=== PATIENT | male | born 1960 | race Caucasian/White ===

== ENCOUNTER 2019-01-27 16:28 | Emergency (ER) | payer OTHER ==
[2019-01-27 16:38] VITALS: RESP 18
[2019-01-27] MEDS ORDERED: IBUPROFEN 800 MG TAB PO STA (17:06)
[2019-01-27] MEDS ORDERED: Acetaminophen-Codeine 300-30mg TAB PO STA (17:06)
[2019-01-27] MEDS ORDERED: PROCHLORPERAZINE 10 MG TAB PO STA (17:06)
[2019-01-27] MEDS ORDERED: ACETAMINOPHEN TAB 325 MG TAB PO STA (17:06)
--- NOTE | 2019-01-27 17:07 | ED ---
Headache HPI - General Chief Complaint: Headache Stated Complaint: head congestion Time Seen by Provider: 01/27/19 16:45 Source: RN notes reviewed, old records reviewed Mode of arrival: ambulatory Limitations: no limitations - History of Present Illness Initial Comments: This is a 58-year-old male the ER for evaluation today. Patient believes he has recurrent sinus infections and sinus headache. Patient denies any recent trauma, headache is frontal right frontal sinus behind right eye. History of exact same, he has had sinus surgery in the past. No recent fevers. No nausea vomiting. No neurological complaint. Patient was recently treated 5 day course of antibiotics with no help. Patient's headache is been throbbing and continuing worsening until today prompting to force patient to come to the ER MD Complaint: headache -: days(s) Onset Description: gradual Location: right, frontal, temporal, retro-orbital Severity: moderate Severity scale (1-10): 5 Quality: throbbing Consistency: constant, intermittent Improves With: nothing Worsens With: none Treatments Prior to Arrival: none - Related Data Home Medications Medication Instructions Recorded Confirmed Fowpulo-Yezi-Oprs [id number] 1 tab PO Q4HR PRN 01/27/19 01/27/19 [Excedrin] Previous Rx's Medication Instructions Recorded Amoxic-Pot Clav 875-125Mg 1 tab PO Q12HR #20 tablet 01/27/19 [Augmentin 875-125] Cetirizine HCl/Pseudoephedrine 1 each PO BID #20 tab.er.12h 01/27/19 [Zyrtec-D Tablet] Naproxen [EC-Naproxen] 500 mg PO BID #30 tablet. 01/27/19 Allergies Allergy/AdvReac Type Severity Reaction Status Date / Time No Known Allergies Allergy Verified 01/27/19 17:57 Review of Systems ROS Statement: Those systems with pertinent positive or pertinent negative responses have been documented in the HPI. ROS Other: All systems not noted in ROS Statement are negative. Past Medical History Past Medical History: No Reported History History of Any Multi-Drug Resistant Organisms: None Reported Past Surgical History: Orthopedic Surgery Additional Past Surgical History / Comment(s): sinus surgery Past Psychological History: No Psychological Hx Reported Smoking Status: Current every day smoker Past Alcohol Use History: Occasional Past Drug Use History: None Reported General Exam Limitations: no limitations General appearance: alert, in no apparent distress Head exam: Present: atraumatic, normocephalic, normal inspection Eye exam: Present: normal appearance, PERRL, EOMI. Absent: scleral icterus, conjunctival injection, periorbital swelling ENT exam: Present: normal exam, mucous membranes moist Neck exam: Present: normal inspection. Absent: tenderness, meningismus, lymphadenopathy Respiratory exam: Present: normal lung sounds bilaterally. Absent: respiratory distress, wheezes, rales, rhonchi, stridor Cardiovascular Exam: Present: regular rate, normal rhythm, normal heart sounds. Absent: systolic murmur, diastolic murmur, rubs, gallop, clicks GI/Abdominal exam: Present: soft, normal bowel sounds. Absent: distended, tenderness, guarding, rebound, rigid Extremities exam: Present: normal inspection, full ROM, normal capillary refill. Absent: tenderness, pedal edema, joint swelling, calf tenderness Back exam: Present: normal inspection Neurological exam: Present: alert, oriented X3, CN II-XII intact Psychiatric exam: Present: normal affect, normal mood Skin exam: Present: warm, dry, intact, normal color. Absent: rash Course Vital Signs 01/27/19 16:34 Temperature 97.7 F Pulse Rate 96 Respiratory 18 Rate Blood Pressure 155/95 O2 Sat by Pulse 96 Oximetry Medical Decision Making - Medical Decision Making 58 male the ER for evaluation of recurrent sinus headache. Sinusitis. Patient will be placed on recurrent antibiotics and headache control - Radiology Data Radiology results: report reviewed (CT brain and facial bones negative for acute disease), image reviewed Disposition Clinical Impression: Headache, Sinusitis Disposition: HOME SELF-CARE Condition: Good Instructions (If sedation given, give patient instructions): Acute Headache (ED), Sinusitis (ED) Prescriptions: Amoxic-Pot Clav 875-125Mg [Augmentin 875-125] 1 tab PO Q12HR #20 tablet Naproxen [EC-Naproxen] 500 mg PO BID #30 tablet. Cetirizine HCl/Pseudoephedrine [Zyrtec-D Tablet] 1 each PO BID #20 tab.er.12h Is patient prescribed a controlled substance at d/c from ED?: No Referrals: None,Stated [Primary Care Provider] - 1-2 days
--- NOTE | 2019-01-27 17:35 | CT ---
EXAMINATION TYPE: CT brain wo con DATE OF EXAM: 01/27/2019 COMPARISON: None HISTORY: Right sided headache and nasal congestion. CT DLP: combined 1405.6 mGycm Automated exposure control for dose reduction was used. FINDINGS: There is some cerebral cortical atrophy. There is no mass effect nor midline shift. There is no sign of intracranial hemorrhage. Calvarium is intact. There is mucosal thickening in the left maxillary si nus. There is a lateral maxillary sinus surgery noted. IMPRESSION: MILD ATROPHY. NO ACUTE INTRACRANIAL ABNORMALITY. LEFT MAXILLARY SINUSITIS.
--- NOTE | 2019-01-27 17:38 | CT ---
EXAMINATION TYPE: CT facial bones wo con DATE OF EXAM: 01/27/2019 COMPARISON: None HISTORY: Right sided headache and nasal congestion. CT DLP: 1405.6 mGycm Automated exposure control for dose reduction was used. TECHNIQUE: CT scan of the sinuses is performed without contrast, axial images are obtained, coronal r eformatted images are also reviewed. FINDINGS: There is bilateral osteotomy of the medial wall of the maxillary sinuses. There is moderate mucosal thickening in the left maxillary sinus. There is minimal mucosal thickening right maxillary sinus. I see no focal bone destruction. There is mild thickening of the lateral wall left maxillary s inus. Mandibular ring is intact. Nasal bone is intact. Zygomatic arches appear normal. Temporal bones show normal aeration. Sphenoid sinus appears normal. There is no evidence of orbital mass. IMPRESSION: Bilateral maxillary sinus surgery. There is evidence of chronic maxillary sinusitis. No f racture.
[2019-01-27] MEDS ORDERED: DEXAMETHASONE 4 MG TAB PO STA (18:05)
[2019-01-27] MEDS ORDERED: ACET/COD 300 MG/30 MG STARTER PACK 6 TAB BTL PO STA (18:15)
[2019-01-27] MEDS ORDERED: HYDROmorphone 1 MG/ML 1 ML SYRINGE IM STA (18:15)
[2019-01-27 18:23] VITALS: BP 141/98; PULSE 81; TEMP 98.1
== END 2019-01-27 18:21 | disposition home or self-care (01) ==
LOC: EC 16:28
DX: J32.0 Chronic maxillary sinusitis (principal); F17.200 Nicotine dependence, unspecified, uncomplicated; Z98.890 Other specified postprocedural states
CPT/HCPCS: 70486; 70450; 99284; 96372; S0183; J8540; J1170

== ENCOUNTER 2022-11-27 14:49 | Emergency (ER) | payer OTHER ==
[2022-11-27 14:57] VITALS: RESP 18; TEMP 97.7
--- NOTE | 2022-11-27 16:29 | ED ---
General Adult HPI - General Chief complaint: Shortness of Breath Stated complaint: SOB Source: patient Mode of arrival: ambulatory Limitations: no limitations - History of Present Illness Initial comments: 62-year-old male presents to the ED with a chief complaint of pneumonia. Ty diana was seen earlier in the week at [facility] due to cough and shortness of breath. There, had a chest x-ray that showed pneumonia. Was prescribed Augmentin and azithromycin. Is been taking his medications appropriately. Despite this, states that he "feels the same". Due to this, was sent to ED for further evaluation. 2 PPD smoker. Denies chest pain or palpitations. - Related Data Home Medications Medication Instructions Recorded Confirmed [id number] [id number] 1 tab PO Q4HR PRN 01/27/19 01/27/19 [Excedrin] Previous Rx's Medication Instructions Recorded Amoxic-Pot Clav 875-125Mg 1 tab PO Q12HR #20 tablet 01/27/19 [Augmentin 875-125] Cetirizine HCl/Pseudoephedrine 1 each PO BID #20 tab.er.12h 01/27/19 [Zyrtec-D Tablet] Naproxen [EC-Naproxen] 500 mg PO BID #30 tablet. 01/27/19 Allergies Allergy/AdvReac Type Severity Reaction Status Date / Time No Known Allergies Allergy Verified 11/27/22 14:57 Review of Systems ROS Statement: Those systems with pertinent positive or pertinent negative responses have been documented in the HPI. ROS Other: All systems not noted in ROS Statement are negative. Past Medical History Past Medical History: COPD History of Any Multi-Drug Resistant Organisms: None Reported Past Surgical History: Orthopedic Surgery Additional Past Surgical History / Comment(s): sinus surgery Past Psychological History: No Psychological Hx Reported Smoking Status: Current every day smoker Past Alcohol Use History: Occasional Past Drug Use History: None Reported General Exam Limitations: no limitations General appearance: alert, in no apparent distress Respiratory exam: Present: wheezes (Wheezing bilaterally accessory muscle use) Cardiovascular Exam: Present: regular rate, normal rhythm Neurological exam: Present: alert, oriented X3 Psychiatric exam: Present: normal affect, normal mood Skin exam: Present: warm, dry Course Vital Signs 11/27/22 11/27/22 11/27/22 14:52 18:13 18:51 Temperature 97.7 F Pulse Rate 44 L 48 L 82 Respiratory 18 18 Rate Blood Pressure 147/72 133/119 O2 Sat by Pulse 97 98 Oximetry Medical Decision Making - Medical Decision Making Was pt. sent in by a medical professional or institution ([facility], [facility], urgent care, hospital, or alf...) When possible be specific @ -No Did you speak to anyone other than the patient for history (EMS, parent, family, police, friend...)? What history was obtained from this source @ -No Did you review nursing and triage notes (agree or disagree)? Why? @ -I reviewed and agree with nursing and triage notes Were old charts reviewed (outside hosp., previous admission, EMS record, old EKG, old radiological studies, urgent care reports/EKG's, alf records)? Report findings @ -Charts reviewed showing no prior imaging of the chest Differential Diagnosis (chest pain, altered mental status, abdominal pain women, abdominal pain men, vaginal bleeding, weakness, fever, dyspnea, syncope, headache, dizziness, GI bleed, back pain, seizure, CVA, palpatations, mental health, musculoskeletal)? @ -Differential Dyspnea: Coronary syndrome, arrhythmia, tamponade, asthma, COPD, pulmonary embolism, pneumonia, pneumothorax, pulmonary effusion, anaphylaxis, diabetic ketoacidosis, flailed chest, pulmonary contusion, diaphragmatic rupture, anemia, elva romuscular, this is not meant to be an all-inclusive list. EKG interpreted by me (3pts min.). @ -As above X-rays interpreted by me (1pt min.). @ -X-ray showed no acute process. CT interpreted by me (1pt min.). @ -None done U/S interpreted by me (1pt. min.). @ -None done What testing was considered but not performed or refused? (CT, X-rays, U/S, labs)? Why? @ -None What meds were considered but not given or refused? Why? @ -None Did you discuss the management of the patient with other professionals (professionals i.e. [facility], [facility], lab, RT, psych nurse, licensed social worker, planting material carrier, teacher, [employer] airspace control officer, egg caser)? Give summary @ -No Was smoking cessation discussed for >3mins.? @ -Yes smoking cessation discussed. Patient noted history of unsuccessful smoking cessation with [facility]. He does report wanting to quit. Advised PCP. Was critical care preformed (if so, how long)? @ -No Were there social determinants of health that impacted care today? How? (Homelessness, low income, unemployed, alcoholism, drug addiction, transpor tation, low edu. Level, literacy, decrease access to med. care, [facility], rehab)? @ -No Was there de-escalation of care discussed even if they declined (Discuss DNR or withdrawal of care, Hospice)? DNR status @ -No What co-morbidities impacted this encounter? (DM, HTN, Smoking, COPD, CAD, Cancer, CVA, ARF, Chemo, Hep., AIDS, mental health diagnosis, sleep apnea, morbid obesity)? @ -COPD Was patient admitted / discharged? Hospital course, mention meds given and route, prescriptions, significant lab abnormalities, going to OR and other pertinent info. @ -Discharged. Abs significant for mildly elevated white count systems with history of infection. Labs otherwise unremarkable. Chest x-ray as above. Patient advised to continue taking antibiotics as prescribed. Discharged in stable condition.. Undiagnosed new problem with uncertain prognosis? @ -No Drug Therapy requiring intensive monitoring for toxicity (Heparin, Nitro, Insulin, Cardizem)? @ -No Were any procedures done? @ -No Diagnosis/symptom? @ -Pneumonia Acute, or Chronic, or Acute on Chronic? @ -Acute Uncomplicated (without systemic symptoms) or Complicated (systemic symptoms)? @ -Uncomplicated Side effects of treatment? @ -No Exacerbation, Progression, or Severe Exacerbation? @ -No Poses a threat to life or bodily function? How? (Chest pain, [place], [place], pneumonia, PE, COPD, DKA, ARF, appy, cholecystitis, CVA, Diverticulitis, Homicidal, Suicidal, threat to staff... and all critical care pts) @ -No - Lab Data Result diagrams: 11/27/22 17:04 11/27/22 17:04 Lab Results 11/27/22 11/27/22 11/27/22 Range/Units 17:04 17: 17:04 WBC 12.4 H (3.8-10.6) k/uL RBC 5.34 (4.30-5.90) m/uL Hgb 16.3 (13.0-17.5) gm/dL Hct 50.2 (39.0-53.0) % MCV 94.0 (80.0-100.0) fL MCH 30.6 (25.0-35.0) pg MCHC 32.5 (31.0-37.0) g/dL RDW 12.5 (11.5-15.5) % Plt Count 288 (150-450) k/uL MPV 7.7 Neutrophils % 73 % Lymphocytes % 22 % Monocytes % 3 % Eosinophils % 1 % Basophils % 0 % Neutrophils # 9.1 H (1.3-7.7) k/uL Lymphocytes # 2.8 (1.0-4.8) k/uL Monocytes # 0.4 (0-1.0) k/uL Eosinophils # 0.1 (0-0.7) k/uL Basophils # 0.0 (0-0.2) k/uL D-Dimer 0.26 (<0.60) mg/L FEU Sodium 137 (137-145) mmol/L Potassium 4.7 (3.5-5.1) mmol/L Chloride 105 (98-107) mmol/L Carbon Dioxide 24 (22-30) mmol/L Anion Gap 8 mmol/L BUN 17 (9-20) mg/dL Creatinine 0.93 (0.66-1.25) mg/dL Est GFR (CKD-EPI)AfAm >90 (>60 ml/min/1.73 sqM) Est GFR (CKD-EPI)NonAf 89 (>60 ml/min/1.73 sqM) Glucose 117 H (74-99) mg/dL Plasma Lactic Acid Juanjose (0.7-2.0) mmol/L Calcium 9.3 (8.4-10.2) mg/dL Total Bilirubin 0.9 (0.2-1.3) mg/dL AST 21 (17-59) U/L ALT 28 (4-49) U/L Alkaline Phosphatase 46 (38-126) U/L Total Protein 7.3 (6.3-8.2) g/dL Albumin 4.3 (3.5-5.0) g/dL 11/27/22 Range/Units 17:04 WBC (3.8-10.6) k/uL RBC (4.30-5.90) m/uL Hgb (13.0-17.5) gm/dL Hct (39.0-53.0) % MCV (80.0-100.0) fL MCH (25.0-35.0) pg MCHC (31.0-37.0) g/dL RDW (11.5-15.5) % Plt Count (150-450) k/uL MPV Neutrophils % % Lymphocytes % % Monocytes % % Eosinophils % % Basophils % % Neutrophils # (1.3-7.7) k/uL Lymphocytes # (1.0-4.8) k/uL Monocytes # (0-1.0) k/uL Eosinophils # (0-0.7) k/uL Basophils # (0-0.2) k/uL D-Dimer (<0.60) mg/L FEU Sodium (137-145) mmol/L Potassium (3.5-5.1) mmol/L Chloride (98-107) mmol/L Carbon Dioxide (22-30) mmol/L Anion Gap mmol/L BUN (9-20) mg/dL Creatinine (0.66-1.25) mg/dL Est GFR (CKD-EPI)AfAm (>60 ml/min/1.73 sqM) Est GFR (CKD-EPI)NonAf (>60 ml/min/1.73 sqM) Glucose (74-99) mg/dL Plasma Lactic Acid Juanjose 1.3 (0.7-2.0) mmol/L Calcium (8.4-10.2) mg/dL Total Bilirubin (0.2-1.3) mg/dL AST (17-59) U/L ALT (4-49) U/L Alkaline Phosphatase (38-126) U/L Total Protein (6.3-8.2) g/dL Albumin (3.5-5.0) g/dL - EKG Data EKG Comments: EKG shows a sinus rhythm at [address] or T-wave changes. KS 158, QRS 106, QT/QTC 340/369 Disposition Clinical Impression: Pneumonia Disposition: HOME SELF-CARE Condition: Good Additional Instructions: Please return to the Emergency Department if symptoms worsen or any other concerns. Is patient prescribed a controlled substance at d/c from ED?: No Referrals: None,Stated [Primary Care Provider] - 1-2 days Time of Disposition: 18:57
[2022-11-27 17:30] LABS: Basophils % (A) 0 %; Eosinophils # (A) 0.1 k/uL (0-0.7); Eosinophils % (A) 1 %; HCT 50.2 % (39.0-53.0); HGB 16.3 gm/dL (13.0-17.5); Lymphocytes # (A) 2.8 k/uL (1.0-4.8); Lymphocytes % (A) 22 %; MCH 30.6 pg (25.0-35.0); MCHC 32.5 g/dL (31.0-37.0); Mean Platelet Volume 7.7; Monocytes # (A) 0.4 k/uL (0-1.0); Monocytes % (A) 3 %; Neutrophils # (A) 9.1 k/uL (1.3-7.7); Neutrophils % (A) 73 %; Platelet Count 288 k/uL (150-450); RBC 5.34 m/uL (4.30-5.90); RDW 12.5 % (11.5-15.5); WBC 12.4 k/uL (3.8-10.6)
[2022-11-27 17:39] LABS: ALT 28 U/L (4-49); AST 21 U/L (17-59); African American GFR (CKD) >90 (>60 ml/min/1.73 sqM); Albumin 4.3 g/dL (3.5-5.0); Alkaline Phosphatase 46 U/L (38-126); Anion Gap 8 mmol/L; Blood Urea Nitrogen 17 mg/dL (9-20); Calcium 9.3 mg/dL (8.4-10.2); Carbon Dioxide 24 mmol/L (22-30); Chloride 105 mmol/L (98-107); Glucose 117 mg/dL (74-99); Non-African American GFR(CKD) 89 (>60 ml/min/1.73 sqM); Potassium 4.7 mmol/L (3.5-5.1); Sodium 137 mmol/L (137-145); Total Bilirubin 0.9 mg/dL (0.2-1.3); Total Protein 7.3 g/dL (6.3-8.2)
--- NOTE | 2022-11-27 18:31 | XR ---
EXAMINATION TYPE: XR chest 1V portable DATE OF EXAM: 11/27/2022 6:27 PM COMPARISON: Chest radiographs from 05/28/2011 TECHNIQUE: XR chest 1V portable Frontal view of the chest. CLINICAL INDICATION:Male, 62 years old with history of pna; FINDINGS: Lungs/Pleura: There is no evidence of pleural effusion, focal consolidation, or pneumothorax. Pulmonary vascularity: Unremarkable. Heart/mediastinum: Cardiomediastinal silhouette is unremarkable. Musculoskeletal: No acute osseous pathology. IMPRESSION: 1. No acute cardiopulmonary disease process. 2. COPD changes.
[2022-11-27 19:35] VITALS: BP 127/98; PULSE 84
== END 2022-11-27 19:35 | disposition home or self-care (01) ==
LOC: EC 14:49
DX: J18.9 Pneumonia, unspecified organism (principal); J44.9 Chronic obstructive pulmonary disease, unspecified; F17.210 Nicotine dependence, cigarettes, uncomplicated; Z79.82 Long term (current) use of aspirin
CPT/HCPCS: 36415; 71045; 80053; 83605; 85025; 85379; 93005; 99285

== ENCOUNTER 2023-03-24 10:32 | Inpatient (IN) | payer OTHER ==
[2023-03-24 13:01] LABS: Basophils # (A) 0.1 k/uL (0-0.2); Basophils % (A) 1 %; Eosinophils # (A) 0.2 k/uL (0-0.7); Eosinophils % (A) 2 %; HCT 48.2 % (39.0-53.0); HGB 15.7 gm/dL (13.0-17.5); Lymphocytes # (A) 3.4 k/uL (1.0-4.8); Lymphocytes % (A) 38 %; MCH 31.4 pg (25.0-35.0); MCHC 32.5 g/dL (31.0-37.0); MCV 96.6 fL (80.0-100.0); Mean Platelet Volume 8.7; Monocytes # (A) 0.6 k/uL (0-1.0); Monocytes % (A) 6 %; Neutrophils # (A) 4.5 k/uL (1.3-7.7); Neutrophils % (A) 51 %; Platelet Count 191 k/uL (150-450); RBC 4.99 m/uL (4.30-5.90); RDW 13.3 % (11.5-15.5); WBC 8.8 k/uL (3.8-10.6)
[2023-03-24 13:17] LABS: ALT 23 U/L (4-49); AST 30 U/L (17-59); African American GFR (CKD) >90 (>60 ml/min/1.73 sqM); Alkaline Phosphatase 53 U/L (38-126); Anion Gap 10 mmol/L; Blood Urea Nitrogen 14 mg/dL (9-20); Calcium 9.5 mg/dL (8.4-10.2); Carbon Dioxide 23 mmol/L (22-30); Chloride 105 mmol/L (98-107); Glucose 89 mg/dL (74-99); Non-African American GFR(CKD) >90 (>60 ml/min/1.73 sqM); Potassium 4.6 mmol/L (3.5-5.1); Sodium 138 mmol/L (137-145); Total Bilirubin 1.8 mg/dL (0.2-1.3); Total Protein 6.9 g/dL (6.3-8.2)
[2023-03-24 13:23] LABS: Prothrombin Time 10.8 sec (9.0-12.0)
[2023-03-24 13:24] LABS: Partial Thromboplastin Time 25.6 sec (22.0-30.0)
--- NOTE | 2023-03-24 14:00 | ED ---
General Adult HPI - General Source: patient, RN notes reviewed, old records reviewed Mode of arrival: ambulatory Limitations: no limitations <Denis Solomon - Last Filed: 03/24/23 14:46> <Bashir Eng - Last Filed: 03/25/23 03:24> - General Chief complaint: Abdominal Pain Stated complaint: Abd/back pain/SOB Time Seen by Provider: 03/24/23 13:25 - History of Present Illness Initial comments: This is a 62-year-old male who presents emergency Department complaining of a week or 2 of abdominal pain. Patient states pain is more in the left side than the right. Patient also states she's been only able to eat a little bit once a day because of the nausea and pain. Patient states she also is having some uppe r back pain that feels more muscular. Patient denies any chest pain palpitations difficulty breathing or shortness of breath. Patient denies any vomiting but states he is still nauseated. Patient denies any diarrhea. Patient states over the last month she's lost about 25 pounds. Patient states he is a smoker. Patient denies any headache patient denies numbness weakness. Patient denies any lower extremity edema. (Denis Solomon) - Related Data Home Medications Medication Instructions Recorded Confirmed Umeclidinium Brm/Vilanterol Tr 1 puff INHALATION RT-HS 03/24/23 03/24/23 [Anoro Ellipta 62.5-25 Mcg INH] Allergies Allergy/AdvReac Type Severity Reaction Status Date / Time No Known Allergies Allergy Verified 03/24/23 13:27 Review of Systems ROS Other: All systems not noted in ROS Statement are negative. <Denis Solomon - Last Filed: 03/24/23 14:46> ROS Other: All systems not noted in ROS Statement are negative. <Bashir Eng - Last Filed: 03/25/23 03:24> ROS Statement: Those systems with pertinent positive or pertinent negative responses have been documented in the HPI. Past Medical History Past Medical History: COPD History of Any Multi-Drug Resistant Organisms: None Reported Past Surgical History: Orthopedic Surgery Additional Past Surgical History / Comment(s): sinus surgery Past Psychological History: No Psychological Hx Reported Smoking Status: Current every day smoker Past Alcohol Use History: Occasional Past Drug Use History: None Reported <Denis Solomon - Last Filed: 03/24/23 14:46> General Exam Limitations: no limitations <Denis Solomon - Last Filed: 03/24/23 14:46> - General Exam Comments Initial Comments: GENERAL: Patient is well-developed and well-nourished. Patient is nontoxic and well- hydrated and is in no acute distress. ENT: Neck is soft and supple. No significant lymphadenopathy is noted. Oropharynx is clear. Moist mucous membranes. Neck has full range of motion without eliciting any pain. EYES: The sclera were anicteric and conjunctiva were pink and moist. Extraocular movements were intact and pupils were equal round and reactive to light. Eyelids were unremarkable. PULMONARY: Unlabored respirations. Good breath sounds bilaterally. No audible rales rhonchi or wheezing was noted. CARDIOVASCULAR: There is a regular rate and rhythm without any murmurs gallops or rubs. ABDOMEN: Soft and nontender with normal bowel sounds. SKIN: Skin is clear with no lesions or rashes and otherwise unremarkable. NEUROLOGIC: Patient is alert and oriented 3. Cranial nerves II through XII are grossly intact. Motor and sensory are also intact. Normal speech, volume and content. Symmetrical smile. MUSCULOSKELETAL: Normal extremities with adequate strength and full range of motion. LYMPHATICS: No significant lymphadenopathy is noted PSYCHIATRIC: Normal psychiatric exam (Denis Solomon) Course Vital Signs 03/24/23 03/24/23 03/24/23 11:25 12:33 19:21 Temperature 97.8 F Pulse Rate 80 84 87 Respiratory 16 16 Rate Blood Pressure 117/49 120/80 O2 Sat by Pulse 95 97 95 Oximetry 03/24/23 03/24/23 03/24/23 21:01 21:10 21:11 Temperature Pulse Rate 80 78 78 Respiratory Rate Blood Pressure O2 Sat by Pulse Oximetry 03/24/23 03/24/23 03/25/23 21:20 22:30 00:55 Temperature Pulse Rate 101 H 98 86 Respiratory 16 16 Rate Blood Pressure 105/83 124/86 O2 Sat by Pulse 95 94 L Oximetry Medical Decision Making - Lab Data Result diagrams: 03/24/23 12:34 03/24/23 12:34 <Denis Solomon - Last Filed: 03/24/23 14:46> - Lab Data Result diagrams: 03/24/23 12:34 03/24/23 12:34 <Bashir Eng - Last Filed: 03/25/23 03:24> - Medical Decision Making EKG is interpreted by myself. EKG shows a sinus rhythm with frequent PVCs at 70 bpm WA interval 265 QRSs 114 Q-T intervals 372 QTC is 45. Patient's EKG shows no ST segment elevation or depression. Was pt. sent in by a medical professional or institution (, [facility], PROGRESS CLERK, urgent care, hospital, or [facility]...) When possible be specific @ -[No] Did you speak to anyone other than the patient for history (EMS, parent, family, police, friend...)? What history was obtained from this source @ -[No] Did you review nursing and triage notes (agree or disagree)? Why? @ -[I reviewed and agree with nursing and triage notes] Were old charts reviewed (outside hosp., previous admission, EMS record, old EKG, old radiological studies, urgent care reports/EKG's, [facility] records)? Report findings @ -[No old charts were reviewed] Differential Diagnosis (chest pain, altered mental status, abdominal pain women, abdominal pain men, vaginal bleeding, weakness, fever, dyspnea, syncope, headache, dizziness, GI bleed, back pain, seizure, CVA, palpatations, mental health, musculoskeletal)? @ -Differential Abdominal Pain Men: Appendicitis, cholecystitis, diverticulosis, ischemic bowel, pancreatitis, hepatitis, UTI, gastroenteritis, AAA, incarcerated hernia, bowel obstruction, constipation, inflammatory bowel, hepatitis, peptic ulcer disease, splenic inf arction, perforated viscus, testicular torsion, this is not meant to be an all- inclusive list EKG interpreted by me (3pts min.). @ -[As above] X-rays interpreted by me (1pt min.). @ -[None done] CT interpreted by me (1pt min.). @ -[None done] U/S interpreted by me (1pt. min.). @ -[None done] What testing was considered but not performed or refused? (CT, X-rays, U/S, labs)? Why? @ -[None] What meds were considered but not given or refused? Why? @ -[None] Did you discuss the management of the patient with other professionals (professionals i.e. Dr., PA, PROGRESS CLERK, lab, RT, psych nurse, high school social studies teacher, contamination consultant, teacher, prison officer, case mgr)? Give summary @ -[No] Was smoking cessation discussed for >3mins.? @ -[No] Was critical care preformed (if so, how long)? @ -[No] Were there social determinants of health that impacted care today? How? (Homelessness, low income, unemployed, alcoholism, drug addiction, transportation, low edu. Level, literacy, decrease access to med. care, longterm, rehab)? @ -[No] Was there de-escalation of care discussed even if they declined (Discuss DNR or withdrawal of care, Hospice)? DNR status @ -[No] What co-morbidities impacted this encounter? (DM, HTN, Smoking, COPD, CAD, Cancer, CVA, ARF, Chemo, Hep., AIDS, mental health diagnosis, sleep apnea, morbid obesity)? @ -[None] Was patient admitted / discharged? Hospital course, mention meds given and route, prescriptions, significant lab abnormalities, going to OR and other pertinent info. @ -Dr. Eng will take over the care of this patient at 3 PM (Denis Solomon) Was patient admitted / discharged? Hospital course, mention meds given and route, prescriptions, significant lab abnormalities, going to OR and other pertinent info. @ -[The patient is signed out pending return of his studies. When these were finished I reevaluated the patient and discussed the results. He does express that he has been having exertional dyspnea and decreased exercise tolerance. Patient has heavy smoking history and found to have minimally elevated troponin. The patient has not had any previous cardiac workup, and in light of this will admit the patient to have serial cardiac enzymes, telemetry monitoring, cardiology consultation as the symptoms may possibly represent underlying angina. Undiagnosed new problem with uncertain prognosis? @ -[No] Drug Therapy requiring intensive monitoring for toxicity (Heparin, Nitro, Insulin, Cardizem)? @ -[No] Were any procedures done? @ -[No] Diagnosis/symptom? @ -[Exertional dyspnea Elevated troponin I Acute, or Chronic, or Acute on Chronic? @ -[Acute Uncomplicated (without systemic symptoms) or Complicated (systemic symptoms)? @ -[Uncomplicated Side effects of treatment? @ -[No] Exacerbation, Progression, or Severe Exacerbation? @ -[No] Poses a threat to life or bodily function? How? (Chest pain, [place], UT, pneumonia, PE, COPD, DKA, ARF, appy, cholecystitis, CVA, Diverticulitis, Homicidal, Suicidal, threat to staff... and all critical care pts) @ -Uncertain at time of admission, though if this does represent angina, there may be worsening to UT/ (Bashir Eng) - Lab Data Lab Results 03/24/23 03/24/23 03/24/23 Range/Units 12:34 12:34 12:34 WBC 8.8 (3.8-10.6) k/uL RBC 4.99 (4.30-5.90) m/uL Hgb 15.7 (13.0-17.5) gm/dL Hct 48.2 (39.0-53.0) % MCV 96.6 (80.0-100.0) fL MCH 31.4 (25.0-35.0) pg MCHC 32.5 (31.0-37.0) g/dL RDW 13.3 (11.5-15.5) % Plt Count 191 (150-450) k/uL MPV 8.7 Neutrophils % 51 % Lymphocytes % 38 % Monocytes % 6 % Eosinophils % 2 % Basophils % 1 % Neutrophils # 4.5 (1.3-7.7) k/uL Lymphocytes # 3.4 (1.0-4.8) k/uL Monocytes # 0.6 (0-1.0) k/uL Eosinophils # 0.2 (0-0.7) k/uL Basophils # 0.1 (0-0.2) k/uL PT 10.8 (9.0-12.0) sec INR 1.0 (<1.2) APTT 25.6 (22.0-30.0) sec Sodium 138 (137-145) mmol/L Potassium 4.6 (3.5-5.1) mmol/L Chloride 105 (98-107) mmol/L Carbon Dioxide 23 (22-30) mmol/L Anion Gap 10 mmol/L BUN 14 (9-20) mg/dL Creatinine 0.86 (0.66-1.25) mg/dL Est GFR (CKD-EPI)AfAm >90 (>60 ml/min/1.73 sqM) Est GFR (CKD-EPI)NonAf >90 (>60 ml/min/1.73 sqM) Glucose 89 (74-99) mg/dL Plasma Lactic Acid Juanjose (0.7-2.0) mmol/L Calcium 9.5 (8.4-10.2) mg/dL Total Bilirubin 1.8 H (0.2-1.3) mg/dL AST 30 (17-59) U/L ALT 23 (4-49) U/L Alkaline Phosphatase 53 (38-126) U/L Troponin I (0.000-0.034) ng/mL Total Protein 6.9 (6.3-8.2) g/dL Albumin 4.0 (3.5-5.0) g/dL Urine Color Urine Appearance (Clear) Urine pH (5.0-8.0) Ur Specific [place] (1.001-1.035) Urine Protein (Negative) Urine Glucose (UA) (Negative) Urine Ketones (Negative) Urine Blood (Negative) Urine Nitrite (Negative) Urine Bilirubin (Negative) Urine Urobilinogen (<2.0) mg/dL Ur Leukocyte Esterase (Negative) Urine RBC (0-5) /hpf Urine WBC (0-5) /hpf Urine Mucus (None) /hpf Coronavirus (PCR) (Not Detectd) 03/24/23 03/24/23 03/24/23 Range/Units 12:34 12:34 15:15 WBC (3.8-10.6) k/uL RBC (4.30-5.90) m/uL Hgb (13.0-17.5) gm/dL Hct (39.0-53.0) % MCV (80.0-100.0) fL MCH (25.0-35.0) pg MCHC (31.0-37.0) g/dL RDW (11.5-15.5) % Plt Count (150-450) k/uL MPV Neutrophils % % Lymphocytes % % Monocytes % % Eosinophils % % Basophils % % Neutrophils # (1.3-7.7) k/uL Lymphocytes # (1.0-4.8) k/uL Monocytes # (0-1.0) k/uL Eosinophils # (0-0.7) k/uL Basophils # (0-0.2) k/uL PT (9.0-12.0) sec INR (<1.2) APTT (22.0-30.0) sec Sodium (137-145) mmol/L Potassium (3.5-5.1) mmol/L Chloride (98-107) mmol/L Carbon Dioxide (22-30) mmol/L Anion Gap mmol/L BUN (9-20) mg/dL Creatinine (0.66-1.25) mg/dL Est GFR (CKD-EPI)AfAm (>60 ml/min/1.73 sqM) Est GFR (CKD-EPI)NonAf (>60 ml/min/1.73 sqM) Glucose (74-99) mg/dL Plasma Lactic Acid Juanjose 0.9 (0.7-2.0) mmol/L Calcium (8.4-10.2) mg/dL Total Bilirubin (0.2-1.3) mg/dL AST (17-59) U/L ALT (4-49) U/L Alkaline Phosphatase (38-126) U/L Troponin I 0.049 H* (0.000-0.034) ng/mL Total Protein (6.3-8.2) g/dL Albumin (3.5-5.0) g/dL Urine Color Urine Appearance (Clear) Urine pH (5.0-8.0) Ur Specific [place] (1.001-1.035) Urine Protein (Negative) Urine Glucose (UA) (Negative) Urine Ketones (Negative) Urine Blood (Negative) Urine Nitrite (Negative) Urine Bilirubin (Negative) Urine Urobilinogen (<2.0) mg/dL Ur Leukocyte Esterase (Negative) Urine RBC (0-5) /hpf Urine WBC (0-5) /hpf Urine Mucus (None) /hpf Coronavirus (PCR) Not Detected (Not Detectd) 03/24/23 Range/Units 15:54 WBC (3.8-10.6) k/uL RBC (4.30-5.90) m/uL Hgb (13.0-17.5) gm/dL Hct (39.0-53.0) % MCV (80.0-100.0) fL MCH (25.0-35.0) pg MCHC (31.0-37.0) g/dL RDW (11.5-15.5) % Plt Count (150-450) k/uL MPV Neutrophils % % Lymphocytes % % Monocytes % % Eosinophils % % Basophils % % Neutrophils # (1.3-7.7) k/uL Lymphocytes # (1.0-4.8) k/uL Monocytes # (0-1.0) k/uL Eosinophils # (0-0.7) k/uL Basophils # (0-0.2) k/uL PT (9.0-12.0) sec INR (<1.2) APTT (22.0-30.0) sec Sodium (137-145) mmol/L Potassium (3.5-5.1) mmol/L Chloride (98-107) mmol/L Carbon Dioxide (22-30) mmol/L Anion Gap mmol/L BUN (9-20) mg/dL Creatinine (0.66-1.25) mg/dL Est GFR (CKD-EPI)AfAm (>60 ml/min/1.73 sqM) Est GFR (CKD-EPI)NonAf (>60 ml/min/1.73 sqM) Glucose (74-99) mg/dL Plasma Lactic Acid Juanjose (0.7-2.0) mmol/L Calcium (8.4-10.2) mg/dL Total Bilirubin (0.2-1.3) mg/dL AST (17-59) U/L ALT (4-49) U/L Alkaline Phosphatase (38-126) U/L Troponin I (0.000-0.034) ng/mL Total Protein (6.3-8.2) g/dL Albumin (3.5-5.0) g/dL Urine Color Colorless Urine Appearance Clear (Clear) Urine pH 6.0 (5.0-8.0) Ur Specific [place] 1.041 H (1.001-1.035) Urine Protein Negative (Negative) Urine Glucose (UA) Negative (Negative) Urine Ketones Trace H (Negative) Urine Blood Trace H (Negative) Urine Nitrite Negative (Negative) Urine Bilirubin Negative (Negative) Urine Urobilinogen <2.0 (<2.0) mg/dL Ur Leukocyte Esterase Negative (Negative) Urine RBC 2 (0-5) /hpf Urine WBC 1 (0-5) /hpf Urine Mucus Rare H (None) /hpf Coronavirus (PCR) (Not Detectd) Disposition <Denis Solomon - Last Filed: 03/24/23 14:46> <Bashir Eng - Last Filed: 03/25/23 03:24> Clinical Impression: Elevated troponin I level Disposition: ADMITTED IP TO THIS HOSP Condition: Fair
--- NOTE | 2023-03-24 15:09 | CT ---
EXAMINATION TYPE: CT abdomen pelvis w con DATE OF EXAM: 03/24/2023 COMPARISON: None HISTORY: RIGHT SIDE ABDOMEN PAIN, WEIGHTLOSS CT DLP: 1236.7 mGycm CONTRAST: CT scan of the abdomen and pelvis is performed without Oral Contrast and with IV Contrast, patient in jected with 100 mL of Isovue 300. FINDINGS: LUNG BASES-: No visible nodule. No infiltrate. Small bilateral pleural effusions are noted. LIVER/GB: No calcified gallstones. No space occupying hepatic lesion. Biliary tree is of normal ca liber. PANCREAS: No inflammation. No distinct mass. SPLEEN: No splenic enlargement. No lesion seen. ADRENALS: No nodule. No thickening. KIDNEYS/BLADDER: No hydronephrosis. No nephrolithiasis. No distinct renal mass. Urinary bladder g rossly unremarkable. BOWEL: Nonvisualization of the appendix. Normal bowel caliber. No inflammation. GENITAL ORGANS: No gross abnormality. LYMPH NODES: No greater than 1cm abdominal or pelvic lymph nodes are appreciated. AORTA: No significant abnormality. OSSEOUS STRUCTURES: No significant abnormality is seen. OTHER: There is a well-circumscribed 3.6 cm mass density anterior to the left kidney but separate fro m the kidney. There is peripheral calcification seen. This is of uncertain etiology and demonstrates Hounsfield unit measurement up to 45. This could reflect circumscribed seroma from prior surgery if t here is such a history or remote traumatic event. Additional possibility is that of a diverticulum ho wever this mass appears to be separate from bowel. Findings felt to reflect benign process. IMPRESSION: 1. No acute inflammatory process seen. No evidence for abscess or free air. 2. Nonvisualization of the appendix. 3.There is a well-circumscribed 3.6 cm mass density anterior to the left kidney but separate from the kidney. There is peripheral calcification seen. Please see above discussion.
[2023-03-24 16:14] LABS: Appearance,Urine Clear (Clear); Bilirubin,Urine Negative (Negative); Blood,Urine Trace (Negative); Color,Urine Colorless; Glucose,Urine (UA) Negative (Negative); Ketones,Urine Trace (Negative); Leukocyte Esterase,Urine Negative (Negative); Mucus,Urine Rare /hpf; Nitrite,Urine Negative (Negative); Protein,Urine Negative (Negative); RBC,Urine 2 /hpf (0-5); Specific Gravity,Urine 1.041 (1.001-1.035); Urobilinogen,Urine <2.0 mg/dL (<2.0); WBC,Urine 1 /hpf (0-5)
--- NOTE | 2023-03-24 16:20 | XR ---
EXAMINATION TYPE: XR chest 2V DATE OF EXAM: 03/24/2023 COMPARISON: 11/27/22 HISTORY: Shortness of breath TECHNIQUE: Frontal and lateral views of the chest are obtained. FINDINGS: Scattered senescent parenchymal changes noted. Hyperinflation compatible with COPD. No evidence for infiltrate. No evidence for atelectasis. Heart size is stable. Mediastinal structures are stable and grossly unremarkable. No evidence for hilar prominence. Degenerative changes dorsal spine. IMPRESSION: 1. No evidence for acute pulmonary disease.
[2023-03-24] MEDS ORDERED: NITROGLYCERIN SL TABS 0.4 MG TAB SUBLINGUAL PRN (16:47)
[2023-03-24] MEDS: IPRATROPIUM 0.5 MG/2.5 ML NEBU INHALATION SCH (21:01)
[2023-03-24] MEDS: FORMOTEROL FUMARATE 20 MCG/2 ML NEBU INHALATION SCH (21:01)
[2023-03-25] MEDS: FORMOTEROL FUMARATE 20 MCG/2 ML NEBU INHALATION SCH ×2 (07:27→19:20)
[2023-03-25] MEDS: IPRATROPIUM 0.5 MG/2.5 ML NEBU INHALATION SCH ×4 (07:29→19:19)
[2023-03-25] MEDS ORDERED: ASPIRIN 325 MG TAB PO SCH (09:00)
[2023-03-25 09:36] LABS: Chol/HDL Ratio 3.71 Ratio; LDL Cholesterol,Calculated 95.8 mg/dL (0.0-131.0); VLDL Calculation 10.78 mg/dL (5.00-40.00)
[2023-03-25] MEDS: NICOTINE 21MG/24HR PATCH TRANSDERM SCH (10:08)
[2023-03-25] MEDS ORDERED: NICOTINE 7MG/24HR PATCH TRANSDERM SCH (10:30)
[2023-03-25] MEDS ORDERED: REGADENOSON 0.4 MG/5 ML SYRINGE IV PRN (12:54)
--- NOTE | 2023-03-25 13:16 | CA ---
Transthoracic Echo Report Name: Guanaco Elias Age: 62 Gender: M : 1960 Exam Date: 03/25/2023 10:53 Exam Location: [facility] Ht (in): 75 Wt (lb): 220 Ordering Physician: Albert Carranza MD ([id number]) Attending/Referring Phys: [employer] Application Developer Salazar Buckner Procedure CPT: Indications: chest pain nstemi Cardiac Hx: Technical Quality: Fair Contrast 1: Total Dose (mL): Contrast 2: Total Dose (mL): MEASUREMENTS (Male / Female) Normal Values 2D ECHO LV Diastolic Diameter PLAX 6.6 cm 4.2 - 5.9 / 3.9 - 5.3 cm LV Systolic Diameter PLAX 5.3 cm IVS Diastolic Thickness 1.3 cm 0.6 - 1.0 / 0.6 - 0.9 cm LVPW Diastolic Thickness 1.3 cm 0.6 - 1.0 / 0.6 - 0.9 cm LV Relative Wall Thickness 0.4 RV Internal Dim ED PLAX 4.4 cm LVOT Diameter 2.1 cm Aortic Root Diameter 3.2 cm LA Systolic Diameter LX 3.1 cm 3.0 - 4.0 / 2.7 - 3.8 cm LV Diastolic Volume MOD BP 164.4 cm??? 67 - 155 / 56 - 104 cm??? LV Systolic Volume MOD BP 134.4 cm??? 22 - 58 / 19 - 49 cm??? LV Ejection Fraction MOD BP 18.2 % >= 55 % LV Cardiac Index MOD BP 970.7 cm???/min???m??? LV Diastolic Volume MOD 4C 151.5 cm??? LV Systolic Volume MOD 4C 114.6 cm??? LV Ejection Fraction MOD 4C 24.3 % LV Cardiac Index MOD 4C 1197.3 cm???/min???m??? LV Diastolic Length 4C 8.4 cm LV Systolic Length 4C 8.0 cm LV Diastolic Volume MOD 2C 169.4 cm??? LV Systolic Volume MOD 2C 156.7 cm??? LV Ejection Fraction MOD 2C 7.5 % LV Cardiac Index MOD 2C 413.8 cm???/min???m??? LV Diastolic Length 2C 8.0 cm LV Systolic Length 2C 8.0 cm LA Volume 85.0 cm??? 18 - 58 / 22 - 52 cm??? LA Volume Index 36.8 cm???/m??? 16 - 28 cm???/m??? Ascending Aorta Diameter 3.1 cm DOPPLER AV Peak Velocity 103.5 cm/s AV Peak Gradient 4.3 mmHg MV Peak Velocity 95.4 cm/s MV Peak Gradient 3.6 mmHg MV Mean Velocity 43.4 cm/s MV Mean Gradient 0.9 mmHg MV Velocity Time Integral 18.8 cm MR Peak Velocity 356.4 cm/s MR Peak Gradient 50.8 mmHg Mitral E Point Velocity 103.6 cm/s Mitral A Point Velocity 25.4 cm/s Mitral E to A Ratio 4.1 MV Deceleration Time 194.9 ms MV E' Velocity 3.7 cm/s Mitral E to MV E' Ratio 27.8 TR Peak Velocity 226.9 cm/s TR Peak Gradient 20.6 mmHg Right Ventricular Systolic Press 25.6 mmHg PV Peak Velocity 84.5 cm/s PV Peak Gradient 2.9 mmHg FINDINGS Left Ventricle Moderate left ventricular dilatation. Normal wall thickness. Left ventricular ejection fraction is estimated at 20-25 %. Right Ventricle Right ventricular dilatation. Right Atrium Right atrial dilatation. Left Atrium Left atrial dilatation. LA volume index= 37ml/m2 Mitral Valve Structurally normal mitral valve. Mild to moderate MR. Aortic Valve Trileaflet aortic valve. No aortic valve stenosis or regurgitation. Tricuspid Valve Structurally normal tricuspid valve. Trace TR. Pulmonic Valve Structurally normal pulmonic valve. No pulmonic regurgitation. Pericardium Normal pericardium. Aorta Normal size aortic root and proximal ascending aorta. CONCLUSIONS Severe LV dysfunction, dilated LV Prominent posterior pericardial stripe Dilated right ventricle with reduced function Previewed by: Dr. Sixto Sanchez MD (Electronically Signed) Final Date: 25 March 2023 13:15
--- NOTE | 2023-03-25 15:57 | P.CRDCN ---
History of Present Illness Consult date: 03/25/23 History of present illness: HISTORY OF PRESENTING ILLNESS 62-year-old male with no significant past medical history. He has not seen any physicians in recent past. He presented to the ER with the complaints of abdominal pain more on the left side than right. It is associated with poor appetite and on-and-off nausea but no obvious vomiting diarrhea or constipation. He denies having any chest pain chest pressure. Patient does report that over last 6 months his exercise capacity has significantly reduced. He also gets easily short of breath. Patient also reports that over last few months he has lost 25 pounds of weight. Patient is a smoker and smokes approximately one pack per day. He denies any alcohol use and marijuana use. He denies any premature history of coronary artery disease in family. He is denying any active chest pain. Patient does report that he is having significant palpitations. DIAGNOSTICS EKG reveals sinus rhythm with no significant ST-T wave changes diagnostic for ischemia. Nonspecific intraventricular conduction delay. Patient is having frequent monomorphic PVCs. Chest xray no acute cardio pulmonary process. Laboratory reviewed, hemoglobin 15.7, troponins 0.04, with a flat pattern. Creatinine 0.8. REVIEW OF SYSTEMS 14 point review of system is negative except what is mentioned above in HPI. PHYSICAL EXAMINATION Vital signs reviewed. Head: Normocephalic. Eyes: Sclerae nonicteric. Neck: Brisk carotid upstroke, no jugular venous distention. Lungs: Clear to auscultation. Heart: Regular rate and rhythm, S1-S2, no S3, no murmur or rub. Abdomen: Soft nontender, positive bowel sounds no organomegaly. Extremities: No edema, intact distal pulses. ASSESSMENT Shortness of breath, likely due to congestive heart failure Mild fluid overload HFrEF with EF 20-25%. Dilated cardiomyopathy Palpitations due to frequent PVCs Tobacco smoker, 1 pack per day 3.5 cm left kidney mass PLAN Echocardiogram was performed today which showed an EF of 20-25%, dilated left ventricle, biatrial dilatation, moderate MR Start aspirin 81 mg, atorvastatin 40 mg, metoprolol 25 mg twice a day Entresto 24/26 mg twice a day Plan for nuclear Lexiscan stress test. Unfortunately stress test are not done on the weekend, plan for stress test on Tuesday Transferred to cardiac telemetry floor. Patient can eat today Past Medical History Past Medical History: COPD History of Any Multi-Drug Resistant Organisms: None Reported Past Surgical History: Orthopedic Surgery Additional Past Surgical History / Comment(s): sinus surgery Past Psychological History: No Psychological Hx Reported Smoking Status: Current every day smoker Past Alcohol Use History: Occasional Past Drug Use History: None Reported Medications and Allergies Home Medications Medication Instructions Recorded Confirmed Type Umeclidinium Brm/Vilanterol Tr 1 puff INHALATION RT-HS 03/24/23 03/24/23 History [Anoro Ellipta 62.5-25 Mcg INH] Allergies Allergy/AdvReac Type Severity Reaction Status Date / Time No Known Allergies Allergy Verified 03/24/23 13:27 Physical Exam Vitals: Vital Signs Temp Pulse Resp BP Pulse Ox FiO2 03/25/23 15:17 87 16 118/79 95 03/25/23 12:52 81 03/25/23 12:40 80 16 03/25/23 12:23 84 18 126/98 95 03/25/23 09:00 78 18 96 03/25/23 08:28 97.5 F L 81 18 105/74 94 L 03/25/23 07:48 80 18 03/25/23 07:40 76 20 03/25/23 07:39 76 20 03/25/23 07:32 96 21 03/25/23 07:29 76 20 03/25/23 06:39 81 16 111/86 95 03/25/23 05:43 67 16 100/75 94 L 03/25/23 00:55 86 16 124/86 94 L 03/24/23 22:30 98 16 105/83 95 03/24/23 21:20 101 H 03/24/23 21:11 78 03/24/23 21:10 78 03/24/23 21:01 80 03/24/23 19:21 87 16 120/80 95 Results 03/24/23 12:34 03/24/23 12:34 Cardiac Enzymes 03/24/23 03/25/23 Range/Units 21:20 01:00 Troponin I 0.044 H* 0.042 H* (0.000-0.034) ng/mL Lipids 03/24/23 Range/Units 12:34 Triglycerides 53.90 (0.00-149.00) mg/dL Cholesterol 146.00 (0.00-200.00) mg/dL HDL Cholesterol 39.40 L (40.00-60.00) mg/dL Cholesterol/HDL Ratio 3.71 Ratio Current Medications Generic Name Dose Route Start Last Admin Trade Name Ralphq PRN Reason Stop Dose Admin Aminophylline 100 mg 03/28/23 06:00 Aminophylline 500 Mg/20 Ml Vial IV 03/28/23 23:00 ONCE PRN Patient Response Caffeine Citrate 60 mg 03/28/23 06:00 Caffeine Citrate 60 Mg/3 Ml Vial IV 03/28/23 23:00 ONCE PRN Patient Response Formoterol Fumarate 20 mcg 03/24/23 20:00 03/25/23 07:27 Formoterol Fumarate 20 Mcg/2 Ml Nebu INHALATION 20 mcg RT-BID BRAYDEN Administration Ipratropium [place] 0.5 mg 03/24/23 20:00 03/25/23 15:42 Ipratropium 0.5 Mg/2.5 Ml Nebu INHALATION 0.5 mg RT-QID BRAYDEN Administration Nicotine 1 patch 03/25/23 10:15 03/25/23 10:08 Nicotine 21mg/24hr Patch TRANSDERM 1 patch DAILY BRAYDEN Administration Nitroglycerin 0.4 mg 03/24/23 16:47 Nitroglycerin Sl Tabs 0.4 Mg Tab SUBLINGUAL Q5M PRN Chest Pain Regadenoson 0.4 mg 03/28/23 06:00 Regadenoson 0.4 Mg/5 Ml Syringe IV 03/28/23 23:00 ONCE PRN Per Protocol 03/24/23 12:34 03/24/23 12:34
[2023-03-25] MEDS: ASPIRIN 81 MG PO SCH (16:14)
[2023-03-25] MEDS: FUROSEMIDE 20 MG TAB PO SCH (16:58)
--- NOTE | 2023-03-25 19:01 | P.HPIM ---
History of Present Illness H&P Date: 03/25/23 Chief Complaint: Chest pain/abdominal pain 62-year-old male who presents emergency Department complaining of a week or 2 of abdominal pain. Patient states pain is more in the left side than the right. Patient also states she's been only able to eat a little bit once a day because of the nausea and pain. Patient states she also is having some upper back pain that feels more muscular. Patient denies any chest pain palpitations difficulty breathing or shortness of breath. Patient denies any vomiting but states he is still nauseated. Patient denies any diarrhea. Patient states over the last month she's lost about 25 pounds. Patient states he is a smoker. Patient denies any headache patient denies numbness weakness. Patient denies any lower extremity edema. (Denis Solomon) Blood work completed in ED reveals a WBC of 8.8, hemoglobin of 15.7 and platelet count of 191, sodium 138, potassium 4.6, BUN/creatinine of 14/0.86 and blood gl ucose of 89 EKG shows a sinus rhythm with frequent PVCs at 70 bpm GA interval 265 QRSs 114 Q-T intervals 372 QTC is 45. Patient's EKG shows no ST segment elevation or depression. CT of the abdomen and pelvis is unremarkable except for 3.6 cm well- circumscribed mass/density anterior to the left kidney but separate from the kidney with peripheral calcification; this could reflect circumscribed seroma; findings are felt to be a benign process Echocardiogram completed revealed severe LV dysfunction, dilated LV, left ventricular EF of 20-25% Review of Systems REVIEW OF SYSTEMS: CONSTITUTIONAL: No fever, no malaise, no fatigue. HEENT: No recent visual problems or hearing problems. Denied any sore throat. CARDIOVASCULAR: No chest pain, orthopnea, PND, no palpitations, no syncope. PULMONARY: No shortness of breath, no cough, no hemoptysis. GASTROINTESTINAL: No diarrhea, no nausea, no vomiting, no abdominal pain. NEUROLOGICAL: No headaches, no weakness, no numbness. HEMATOLOGICAL: Denies any bleeding or petechiae. GENITOURINARY: Denies any burning micturition, frequency, or urgency. MUSCULOSKELETAL/RHEUMATOLOGICAL: Denies any joint pain, swelling, or any muscle pain. ENDOCRINE: Denies any polyuria or polydipsia. The rest of the 14-point review of systems is negative. Past Medical History Past Medical History: COPD History of Any Multi-Drug Resistant Organisms: None Reported Past Surgical History: Orthopedic Surgery Additional Past Surgical History / Comment(s): sinus surgery Past Psychological History: No Psychological Hx Reported Smoking Status: Current every day smoker Past Alcohol Use History: Occasional Past Drug Use History: None Reported Medications and Allergies Home Medications Medication Instructions Recorded Confirmed Type Umeclidinium Brm/Vilanterol Tr 1 puff INHALATION RT-HS 03/24/23 03/24/23 History [Anoro Ellipta 62.5-25 Mcg INH] Allergies Allergy/AdvReac Type Severity Reaction Status Date / Time No Known Allergies Allergy Verified 03/24/23 13:27 Physical Exam Vitals: Vital Signs Temp Pulse Resp BP Pulse Ox FiO2 03/25/23 12:52 81 03/25/23 12:40 80 16 03/25/23 12:23 84 18 126/98 95 03/25/23 09:00 78 18 96 03/25/23 08:28 97.5 F L 81 18 105/74 94 L 03/25/23 07:48 80 18 03/25/23 07:40 76 20 03/25/23 07:39 76 20 03/25/23 07:32 96 21 03/25/23 07:29 76 20 03/25/23 06:39 81 16 111/86 95 03/25/23 05:43 67 16 100/75 94 L 03/25/23 00:55 86 16 124/86 94 L 03/24/23 22:30 98 16 105/83 95 03/24/23 21:20 101 H 03/24/23 21:11 78 03/24/23 21:10 78 03/24/23 21:01 80 03/24/23 19:21 87 16 120/80 95 PHYSICAL EXAMINATION: GENERAL: The patient is alert and oriented x3, not in any acute distress. Well developed, well nourished. HEENT: Pupils are round and equally reacting to light. EOMI. No scleral icterus. No conjunctival pallor. Normocephalic, atraumatic. No pharyngeal erythema. No thyromegaly. CARDIOVASCULAR: S1 and S2 present. No murmurs, rubs, or gallops. PULMONARY: Chest is clear to auscultation, no wheezing or crackles. ABDOMEN: Soft, nontender, nondistended, normoactive bowel sounds. No palpable organomegaly. MUSCULOSKELETAL: No joint swelling or deformity. EXTREMITIES: No cyanosis, clubbing, or pedal edema. NEUROLOGICAL: Gross neurological examination did not reveal any focal deficits. SKIN: No rashes. Results CBC & Chem 7: 03/24/23 12:34 03/24/23 12:34 Labs: Abnormal Lab Results - Last 24 Hours (Table) 03/24/23 03/24/23 03/24/23 Range/Units 12:34 15:54 21:20 Troponin I 0.044 H* (0.000-0.034) ng/mL HDL Cholesterol 39.40 L (40.00-60.00) mg/dL Ur Specific [place] 1.041 H (1.001-1.035) Urine Ketones Trace H (Negative) Urine Blood Trace H (Negative) Urine Mucus Rare H (None) /hpf 03/25/23 Range/Units 01:00 Troponin I 0.042 H* (0.000-0.034) ng/mL HDL Cholesterol (40.00-60.00) mg/dL Ur Specific [place] (1.001-1.035) Urine Ketones (Negative) Urine Blood (Negative) Urine Mucus (None) /hpf Assessment and Plan Assessment: 1. Elevated troponin -- Echocardiogram is completed which revealed severe cardiomyopathy with EF of 20-25% -- Troponin elevated at 0.049 -- Cardiology on board; trend troponin; monitor EKG - 2-D echo which reveals EF of 20-25%; dilated left ventricle; biatrial dilatation; moderate MR -- Lexiscan stress test is ordered 2. Mild CHF; EF of 20-25%; dilated cardiomyopathy -- Start aspirin 81 mg, atorvastatin 40 mg, metoprolol 25 mg twice a day Entresto 24/26 mg twice a day 3. Abdominal pain; etiology unclear - CT of the abdomen completed which revealed 3.6 cm well-circumscribed mass/density anterior to the left kidney but separate from the kidney with p eripheral calcification; this could reflect circumscribed seroma; findings are felt to be a benign process - We will continue to monitor 4. Hyperbilirubinemia; elevated total bilirubin of 1.8; AST/ALT, alkaline phosphatase are all within normal limits -- We will repeat complete liver function test and make further recommendations 5. COPD; not in exacerbation; continue with home inhaler therapy DVT prophylaxis; SCDs/subcu heparin CODE STATUS; full code
[2023-03-25] MEDS: METOPROLOL TARTRATE 25 MG TAB PO SCH (20:07)
[2023-03-25] MEDS: HEPARIN SODIUM,PORCINE 5,000 UNIT/ML 1 ML VIAL SQ SCH (20:07)
[2023-03-25] MEDS: ATORVASTATIN 40 MG TAB PO SCH (20:07)
[2023-03-25] MEDS: SACUBITRIL/VALSARTAN 24 MG-26 MG TABLET PO SCH (20:07)
[2023-03-26] MEDS: IPRATROPIUM 0.5 MG/2.5 ML NEBU INHALATION SCH ×4 (07:56→18:49)
[2023-03-26] MEDS: FORMOTEROL FUMARATE 20 MCG/2 ML NEBU INHALATION SCH ×2 (07:56→18:49)
[2023-03-26 08:54] LABS: Basophils % (A) 0 %; Eosinophils # (A) 0.2 k/uL (0-0.7); Eosinophils % (A) 2 %; HCT 49.9 % (39.0-53.0); HGB 16.1 gm/dL (13.0-17.5); Lymphocytes # (A) 3.5 k/uL (1.0-4.8); Lymphocytes % (A) 32 %; MCHC 32.2 g/dL (31.0-37.0); MCV 96.1 fL (80.0-100.0); Mean Platelet Volume 8.7; Monocytes # (A) 0.8 k/uL (0-1.0); Monocytes % (A) 7 %; Neutrophils # (A) 6.4 k/uL (1.3-7.7); Neutrophils % (A) 58 %; Platelet Count 223 k/uL (150-450); RDW 13.3 % (11.5-15.5); WBC 11.1 k/uL (3.8-10.6)
[2023-03-26 09:04] LABS: ALT 21 U/L (4-49); AST 22 U/L (17-59); African American GFR (CKD) >90 (>60 ml/min/1.73 sqM); Albumin 3.8 g/dL (3.5-5.0); Alkaline Phosphatase 51 U/L (38-126); Anion Gap 10 mmol/L; Bilirubin,Unconjugated 1.7 mg/dL (0.0-1.1); Blood Urea Nitrogen 13 mg/dL (9-20); Carbon Dioxide 22 mmol/L (22-30); Chloride 106 mmol/L (98-107); Glucose 100 mg/dL (74-99); Non-African American GFR(CKD) 84 (>60 ml/min/1.73 sqM); Potassium 4.2 mmol/L (3.5-5.1); Sodium 138 mmol/L (137-145); Total Bilirubin 1.7 mg/dL (0.2-1.3); Total Protein 6.7 g/dL (6.3-8.2)
[2023-03-26] MEDS: HEPARIN SODIUM,PORCINE 5,000 UNIT/ML 1 ML VIAL SQ SCH ×2 (09:09→22:01)
[2023-03-26] MEDS: METOPROLOL TARTRATE 25 MG TAB PO SCH ×2 (09:09→22:01)
[2023-03-26] MEDS: FUROSEMIDE 20 MG TAB PO SCH (09:09)
[2023-03-26] MEDS: SACUBITRIL/VALSARTAN 24 MG-26 MG TABLET PO SCH ×2 (09:09→23:18)
[2023-03-26] MEDS: ASPIRIN 81 MG PO SCH (09:09)
[2023-03-26] MEDS: NICOTINE 21MG/24HR PATCH TRANSDERM SCH (09:09)
--- NOTE | 2023-03-26 18:33 | P.PN ---
Subjective Progress Note Date: 03/26/23 62-year-old male who presents emergency Department complaining of a week or 2 of abdominal pain. Patient states pain is more in the left side than the right. Patient also states she's been only able to eat a little bit once a day because of the nausea and pain. Patient states she also is having some upper back pain that feels more muscular. Patient denies any chest pain palpitations difficulty breathing or shortness of breath. Patient denies any vomiting but states he is still nauseated. Patient denies any diarrhea. Patient states over the last month she's lost about 25 pounds. Patient states he is a smoker. Patient denies any headache patient denies numbness weakness. Patient denies any lower extremity edema. (Denis Solomon) Blood work completed in ED reveals a WBC of 8.8, hemoglobin of 15.7 and platelet count of 191, sodium 138, potassium 4.6, BUN/creatinine of 14/0.86 and blood glucose of 89 EKG shows a sinus rhythm with frequent PVCs at 70 bpm SC interval 265 QRSs 114 Q-T intervals 372 QTC is 45. Patient's EKG shows no ST segment elevation or depression. CT of the abdomen and pelvis is unremarkable except for 3.6 cm well- circumscribed mass/density anterior to the left kidney but separate from the kidney with peripheral calcification; this could reflect circumscribed seroma; findings are felt to be a benign process Echocardiogram completed revealed severe LV dysfunction, dilated LV, left ventricular EF of 20-25% -- Patient has been evaluated by cardiology; recommendations are as follows Echocardiogram was performed today which showed an EF of 20-25%, dilated left ventricle, biatrial dilatation, moderate MR Start aspirin 81 mg, atorvastatin 40 mg, metoprolol 25 mg twice a day Entresto 24/26 mg twice a day Plan for nuclear Lexiscan stress test on Tuesday Objective - Vital Signs Vital signs: Vital Signs Temp 98 F 03/26/23 08:00 Pulse 92 03/26/23 08:17 Resp 18 03/26/23 08:00 BP 106/67 03/26/23 08:00 Pulse Ox 97 03/26/23 08:08 FiO2 21 03/26/23 08:08 Intake & Output 03/25/23 03/26/23 03/26/23 18:59 06:59 18:59 Intake Total 540 360 Balance 540 360 Intake: Oral 540 360 Other: Voiding Method Toilet # Voids 1 - Exam GENERAL: The patient is alert and oriented x3, not in any acute distress. Well developed, well nourished. HEENT: Pupils are round and equally reacting to light. EOMI. No scleral icterus. No conjunctival pallor. Normocephalic, atraumatic. No pharyngeal erythema. No thyromegaly. CARDIOVASCULAR: S1 and S2 present. No murmurs, rubs, or gallops. PULMONARY: Chest is clear to auscultation, no wheezing or crackles. ABDOMEN: Soft, nontender, nondistended, normoactive bowel sounds. No palpable organomegaly. MUSCULOSKELETAL: No joint swelling or deformity. EXTREMITIES: No cyanosis, clubbing, or pedal edema. NEUROLOGICAL: Gross neurological examination did not reveal any focal deficits. SKIN: No rashes. - Labs CBC & Chem 7: 03/26/23 07:54 03/26/23 07:54 Labs: Abnormal Lab Results - Last 24 Hours (Table) 03/26/23 03/26/23 Range/Units 07:54 07:54 WBC 11.1 H (3.8-10.6) k/uL Glucose 100 H (74-99) mg/dL Total Bilirubin 1.7 H (0.2-1.3) mg/dL Unconjugated Bilirubin 1.7 H (0.0-1.1) mg/dL Assessment and Plan Assessment: 1. Elevated troponin -- Echocardiogram is completed which revealed severe cardiomyopathy with EF of 20-25% -- Troponin elevated at 0.049 -- Cardiology on board; trend troponin; monitor EKG - 2-D echo which reveals EF of 20-25%; dilated left ventricle; biatrial dilatation; moderate MR -- Lexiscan stress test is ordered 2. Mild CHF; EF of 20-25%; dilated cardiomyopathy -- Start aspirin 81 mg, atorvastatin 40 mg, metoprolol 25 mg twice a day Entresto 24/26 mg twice a day 3. Abdominal pain; etiology unclear - CT of the abdomen completed which revealed 3.6 cm well-circumscribed mass/density anterior to the left kidney but separate from the kidney with peripheral calcification; this could reflect circumscribed seroma; findings are felt to be a benign process - We will continue to monitor 4. Hyperbilirubinemia; elevated total bilirubin of 1.8; AST/ALT, alkaline phosphatase are all within normal limits -- We will repeat complete liver function test and make further recommendations 5. COPD; not in exacerbation; continue with home inhaler therapy DVT prophylaxis; SCDs/subcu heparin CODE STATUS; full code
--- NOTE | 2023-03-26 19:08 | P.PN ---
Subjective Progress Note Date: 03/26/23 Progress note patient has tolerated the addition of guideline directed medical therapy. His blood pressure and renal function are stable.. Detailed discussion about further plan. We will plan for cardiac catheterization on Tuesday morning HISTORY OF PRESENTING ILLNESS 62-year-old male with no significant past medical history. He has not seen any physicians in recent past. He presented to the ER with the complaints of abdominal pain more on the left side than right. It is associated with poor appetite and on-and-off nausea but no obvious vomiting diarrhea or constipation. He denies having any chest pain chest pressure. Patient does report that over last 6 months his exercise capacity has significantly reduced. He also gets easily short of breath. Patient also reports that over last few months he has lost 25 pounds of weight. Patient is a smoker and smokes approximately one pack per day. He denies any alcohol use and marijuana use. He denies any premature history of coronary artery disease in family. He is denying any active chest pain. Patient does report that he is having significant palpitations. DIAGNOSTICS EKG reveals sinus rhythm with no significant ST-T wave changes diagnostic for ischemia. Nonspecific intraventricular conduction delay. Patient is having frequent monomorphic PVCs. Chest xray no acute cardio pulmonary process. Laboratory reviewed, hemoglobin 15.7, troponins 0.04, with a flat pattern. Creatinine 0.8. REVIEW OF SYSTEMS 14 point review of system is negative except what is mentioned above in HPI. PHYSICAL EXAMINATION Vital signs reviewed. Head: Normocephalic. Eyes: Sclerae nonicteric. Neck: Brisk carotid upstroke, no jugular venous distention. Lungs: Clear to auscultation. Heart: Regular rate and rhythm, S1-S2, no S3, no murmur or rub. Abdomen: Soft nontender, positive bowel sounds no organomegaly. Extremities: No edema, intact distal pulses. ASSESSMENT Shortness of breath, likely due to congestive heart failure Mild fluid overload HFrEF with EF 20-25%. Dilated cardiomyopathy Palpitations due to frequent PVCs Tobacco smoker, 1 pack per day 3.5 cm left kidney mass PLAN Echocardiogram was performed today which showed an EF of 20-25%, dilated left ventricle, biatrial dilatation, moderate MR Start aspirin 81 mg, atorvastatin 40 mg, metoprolol 25 mg twice a day Entresto 24/26 mg twice a day Plan for cardiac catheterization on Tuesday with Dr. Dillon Dennison prior to discharge Objective - Vital Signs Vital signs: Vital Signs Temp 97.9 F 03/26/23 16:00 Pulse 84 03/26/23 18:57 Resp 18 03/26/23 16:00 BP 121/76 03/26/23 16:00 Pulse Ox 97 03/26/23 16:00 FiO2 21 03/26/23 08:08 Intake & Output 03/26/23 03/26/23 03/27/23 06:59 18:59 06:59 Intake Total 540 960 Balance 540 960 Intake: Oral 540 960 Other: Voiding Method Toilet # Voids 1 3 - Labs CBC & Chem 7: 03/26/23 07:54 03/26/23 07:54 Labs: Abnormal Lab Results - Last 24 Hours (Table) 03/26/23 03/26/23 Range/Units 07:54 07:54 WBC 11.1 H (3.8-10.6) k/uL Glucose 100 H (74-99) mg/dL Total Bilirubin 1.7 H (0.2-1.3) mg/dL Unconjugated Bilirubin 1.7 H (0.0-1.1) mg/dL
[2023-03-26] MEDS: ATORVASTATIN 40 MG TAB PO SCH (22:01)
[2023-03-27 08:14] LABS: African American GFR (CKD) >90 (>60 ml/min/1.73 sqM); Anion Gap 8 mmol/L; Blood Urea Nitrogen 13 mg/dL (9-20); Carbon Dioxide 27 mmol/L (22-30); Chloride 104 mmol/L (98-107); Glucose 92 mg/dL (74-99); Non-African American GFR(CKD) >90 (>60 ml/min/1.73 sqM); Potassium 4.7 mmol/L (3.5-5.1); Sodium 139 mmol/L (137-145)
[2023-03-27] MEDS: FORMOTEROL FUMARATE 20 MCG/2 ML NEBU INHALATION SCH ×2 (08:47→22:11)
[2023-03-27] MEDS: IPRATROPIUM 0.5 MG/2.5 ML NEBU INHALATION SCH ×4 (08:47→22:11)
[2023-03-27] MEDS: ASPIRIN 81 MG PO SCH (09:34)
[2023-03-27] MEDS: FUROSEMIDE 20 MG TAB PO SCH (09:34)
[2023-03-27] MEDS: METOPROLOL TARTRATE 25 MG TAB PO SCH ×2 (09:34→22:31)
[2023-03-27] MEDS: HEPARIN SODIUM,PORCINE 5,000 UNIT/ML 1 ML VIAL SQ SCH ×2 (09:34→22:31)
[2023-03-27] MEDS: SACUBITRIL/VALSARTAN 24 MG-26 MG TABLET PO SCH ×2 (09:34→22:30)
[2023-03-27] MEDS: NICOTINE 21MG/24HR PATCH TRANSDERM SCH (09:34)
--- NOTE | 2023-03-27 13:18 | P.PN ---
Subjective Progress Note Date: 03/27/23 Progress note patient has tolerated the addition of guideline directed medical therapy. His blood pressure and renal function are stable.. Detailed discussion about further plan. We will plan for cardiac catheterization on Tuesday morning HISTORY OF PRESENTING ILLNESS 62-year-old male with no significant past medical history. He has not seen any physicians in recent past. He presented to the ER with the complaints of abdominal pain more on the left side than right. It is associated with poor appetite and on-and-off nausea but no obvious vomiting diarrhea or constipation. He denies having any chest pain chest pressure. Patient does report that over last 6 months his exercise capacity has significantly reduced. He also gets easily short of breath. Patient also reports that over last few months he has lost 25 pounds of weight. Patient is a smoker and smokes approximately one pack per day. He denies any alcohol use and marijuana use. He denies any premature history of coronary artery disease in family. He is denying any active chest pain. Patient does report that he is having significant palpitations. DIAGNOSTICS EKG reveals sinus rhythm with no significant ST-T wave changes diagnostic for ischemia. Nonspecific intraventricular conduction delay. Patient is having frequent monomorphic PVCs. Chest xray no acute cardio pulmonary process. Laboratory reviewed, hemoglobin 15.7, troponins 0.04, with a flat pattern. Creatinine 0.8. REVIEW OF SYSTEMS 14 point review of system is negative except what is mentioned above in HPI. PHYSICAL EXAMINATION Vital signs reviewed. Head: Normocephalic. Eyes: Sclerae nonicteric. Neck: Brisk carotid upstroke, no jugular venous distention. Lungs: Clear to auscultation. Heart: Regular rate and rhythm, S1-S2, no S3, no murmur or rub. Abdomen: Soft nontender, positive bowel sounds no organomegaly. Extremities: No edema, intact distal pulses. ASSESSMENT Shortness of breath, likely due to congestive heart failure Mild fluid overload HFrEF with EF 20-25%. Dilated cardiomyopathy Palpitations due to frequent PVCs Tobacco smoker, 1 pack per day 3.5 cm left kidney mass PLAN Echocardiogram was performed today which showed an EF of 20-25%, dilated left ventricle, biatrial dilatation, moderate MR Start aspirin 81 mg, atorvastatin 40 mg, metoprolol 25 mg twice a day Entresto 24/26 mg twice a day Plan for cardiac catheterization on Tuesday with Dr. Dillon Dennison prior to discharge Objective - Vital Signs Vital signs: Vital Signs Temp 98.2 F 03/27/23 12:00 Pulse 77 03/27/23 12:00 Resp 18 03/27/23 12:00 BP 108/67 03/27/23 12:00 Pulse Ox 100 03/27/23 12:00 FiO2 21 03/26/23 08:08 Intake & Output 03/26/23 03/27/23 03/27/23 18:59 06:59 18:59 Intake Total 960 540 320 Balance 960 540 320 Intake: Oral 960 540 320 Other: Voiding Method Toilet # Voids 3 1 - Labs CBC & Chem 7: 03/26/23 07:54 03/27/23 07:22
--- NOTE | 2023-03-27 15:26 | P.PN ---
Subjective 62-year-old male who presents emergency Department complaining of a week or 2 of abdominal pain. Patient states pain is more in the left side than the right. Patient also states she's been only able to eat a little bit once a day because of the nausea and pain. Patient states she also is having some upper back pain that feels more muscular. Patient denies any chest pain palpitations difficulty breathing or shortness of breath. Patient denies any vomiting but states he is still nauseated. Patient denies any diarrhea. Patient states over the last month she's lost about 25 pounds. Patient states he is a smoker. Patient denies any headache patient denies numbness weakness. Patient denies any lower extremity edema. (Denis Solomon) Blood work completed in ED reveals a WBC of 8.8, hemoglobin of 15.7 and platelet count of 191, sodium 138, potassium 4.6, BUN/creatinine of 14/0.86 and blood glucose of 89 EKG shows a sinus rhythm with frequent PVCs at 70 bpm NJ interval 265 QRSs 114 Q-T intervals 372 QTC is 45. Patient's EKG shows no ST segment elevation or depression. CT of the abdomen and pelvis is unremarkable except for 3.6 cm well- circumscribed mass/density anterior to the left kidney but separate from the kidney with peripheral calcification; this could reflect circumscribed seroma; findings are felt to be a benign process Echocardiogram completed revealed severe LV dysfunction, dilated LV, left ventricular EF of 20-25% -- Patient has been evaluated by cardiology; recommendations are as follows Echocardiogram was performed today which showed an EF of 20-25%, dilated left ventricle, biatrial dilatation, moderate MR Start aspirin 81 mg, atorvastatin 40 mg, metoprolol 25 mg twice a day Entresto 24/26 mg twice a day Plan for nuclear Lexiscan stress test on Tuesday03/27/2023 Patient is seen and evaluated with multiple family members at bedside; denies any complaint of chest shortness of breath Vital signs are reviewed and remained stable Lab review shows sodium of 139, potassium 4.7, BUN/creatinine of 13/0.92 Cardiology on board; echocardiogram reveals EF of 20-25% with dilated left ventricle and biatrial dilatation and moderate MR; patient has been placed on aspirin, atorvastatin, metoprolol and Entresto -- Stress test has been canceled and patient is scheduled for cardiac catheterization on Tuesday Cardiology recommending LifeVest prior to discharge Objective - Vital Signs Vital signs: Vital Signs Temp 98.2 F 03/27/23 12:00 Pulse 77 03/27/23 12:00 Resp 18 03/27/23 12:00 BP 108/67 03/27/23 12:00 Pulse Ox 100 03/27/23 12:00 FiO2 21 03/26/23 08:08 Intake & Output 03/26/23 03/27/23 03/27/23 18:59 06:59 18:59 Intake Total 960 540 320 Balance 960 540 320 Intake: Oral 960 540 320 Other: Voiding Method Toilet # Voids 3 1 - Exam GENERAL: The patient is alert and oriented x3, not in any acute distress. Well developed, well nourished. HEENT: Pupils are round and equally reacting to light. EOMI. No scleral icterus. No conjunctival pallor. Normocephalic, atraumatic. No pharyngeal erythema. No thyromegaly. CARDIOVASCULAR: S1 and S2 present. No murmurs, rubs, or gallops. PULMONARY: Chest is clear to auscultation, no wheezing or crackles. ABDOMEN: Soft, nontender, nondistended, normoactive bowel sounds. No palpable organomegaly. MUSCULOSKELETAL: No joint swelling or deformity. EXTREMITIES: No cyanosis, clubbing, or pedal edema. NEUROLOGICAL: Gross neurological examination did not reveal any focal deficits. SKIN: No rashes. - Labs CBC & Chem 7: 03/26/23 07:54 03/27/23 07:22 Assessment and Plan Assessment: 1. Elevated troponin -- Echocardiogram is completed which revealed severe cardiomyopathy with EF of 20-25% -- Troponin elevated at 0.049 -- Cardiology on board; trend troponin; monitor EKG - 2-D echo which reveals EF of 20-25%; dilated left ventricle; biatrial dilatation; moderate MR -- Lexiscan stress test is ordered 2. Mild CHF; EF of 20-25%; dilated cardiomyopathy -- Start aspirin 81 mg, atorvastatin 40 mg, metoprolol 25 mg twice a day Entresto 24/26 mg twice a day 3. Abdominal pain; etiology unclear - CT of the abdomen completed which revealed 3.6 cm well-circumscribed mass/density anterior to the left kidney but separate from the kidney with peripheral calcification; this could reflect circumscribed seroma; findings are felt to be a benign process - We will continue to monitor 4. Hyperbilirubinemia; elevated total bilirubin of 1.8; AST/ALT, alkaline phosphatase are all within normal limits -- We will repeat complete liver function test and make further recommendations 5. COPD; not in exacerbation; continue with home inhaler therapy DVT prophylaxis; SCDs/subcu heparin CODE STATUS; full code
[2023-03-27] MEDS: ATORVASTATIN 40 MG TAB PO SCH (22:31)
[2023-03-28] MEDS ORDERED: REGADENOSON 0.4 MG/5 ML SYRINGE IV PRN (06:00)
[2023-03-28] MEDS ORDERED: CAFFEINE CITRATE 60 MG/3 ML VIAL IV PRN (06:00)
[2023-03-28] MEDS ORDERED: AMINOPHYLLINE 500 MG/20 ML VIAL IV PRN (06:00)
[2023-03-28] MEDS: IPRATROPIUM 0.5 MG/2.5 ML NEBU INHALATION SCH ×4 (08:22→20:29)
[2023-03-28] MEDS: FORMOTEROL FUMARATE 20 MCG/2 ML NEBU INHALATION SCH ×2 (08:22→20:29)
[2023-03-28] MEDS: ASPIRIN 81 MG PO SCH (08:47)
[2023-03-28] MEDS: SACUBITRIL/VALSARTAN 24 MG-26 MG TABLET PO SCH ×2 (08:47→21:15)
[2023-03-28] MEDS: HEPARIN SODIUM,PORCINE 5,000 UNIT/ML 1 ML VIAL SQ SCH ×2 (08:47→21:17)
[2023-03-28] MEDS: METOPROLOL TARTRATE 25 MG TAB PO SCH ×2 (08:47→21:16)
[2023-03-28] MEDS: FUROSEMIDE 20 MG TAB PO SCH (08:47)
[2023-03-28] MEDS: NICOTINE 21MG/24HR PATCH TRANSDERM SCH (08:48)
[2023-03-28] MEDS ORDERED: ALPRAZolam 0.5 MG TAB PO PRN (12:09)
[2023-03-28] MEDS ORDERED: ALPRAZolam 0.25 MG TAB PO PRN (12:09)
[2023-03-28] MEDS ORDERED: NITROGLYCERIN SL TABS 0.4 MG TAB SUBLINGUAL PRN (12:09)
--- NOTE | 2023-03-28 14:14 | P.PN ---
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 Patient initially presented to the hospital with abdominal pain, poor appetite, nausea, and shortness of breath. Patient was found to have cardiomyopathy with an ejection fraction of 20-25%, [id number] MR, and trace TR. Patient is scheduled for cardiac catheterization tomorrow. Patient currently denies chest pain or pressure. He denies shortness of breath. Vital signs are stable. Patient is a current cigarette smoker and smokes 1 pack per day. He also reports 6-8 beers per week. PHYSICAL EXAM: VITAL SIGNS: Reviewed. GENERAL: Well-developed in no acute distress. NECK: Supple. No JVD or thyromegaly LUNGS: Respirations even and unlabored. Lungs essentially clear to auscultation bilaterally. HEART: Regular rate and rhythm. S1 and S2 heard. EXTREMITIES: Normal range of motion. No clubbing or cyanosis. Peripheral pulses intact. No lower extremity edema ASSESSMENT: Shortness of breath Acute congestive heart failure with reduced EF, Ef 20-25% New-onset cardiomyopathy, ischemic versus nonischemic Palpitations due to frequent PACs/PVCs Nicotine dependence Alcohol use, patient reports drinking 6-8 beers per week PLAN: Continue current cardiac medications Add Aldactone 25 mg daily Recommend smoking cessation and abstinence from alcohol NPO at midnight Patient to undergo cardiac catheterization tomorrow with Dr. Carranza Further recommendations pending patient's course Nurse practitioner note has been reviewed by physician. Signing provider agrees with the documented findings, assessment, and plan of care. Objective - Vital Signs Vital signs: Vital Signs Temp 98.2 F 03/28/23 11:20 Pulse 72 03/28/23 11:43 Resp 18 03/28/23 11:20 BP 129/63 03/28/23 11:20 Pulse Ox 100 03/28/23 11:20 FiO2 21 03/26/23 08:08 Intake & Output 03/27/23 03/28/23 03/28/23 18:59 06:59 18:59 Intake Total 680 Output Total 200 Balance 680 -200 Intake: Oral 680 Output: Urine 200 Other: Voiding Method Toilet Toilet # Voids 1 - Labs CBC & Chem 7: 03/26/23 07:54 03/27/23 07:22
[2023-03-28] MEDS: SODIUM CHLORIDE 0.9% 1,000 ML in EMPTY BAG 1 BAG IV SCH (17:59)
[2023-03-28] MEDS: ATORVASTATIN 40 MG TAB PO SCH (21:15)
--- NOTE | 2023-03-28 23:15 | P.PN ---
Subjective Progress Note Date: 03/28/23 Patient is a 62 year old male comes in with complaints of exertional dyspnea. No prior cardiac stenting or [place]. Patient had troponin elevation and is pending cardiac catheterization which is scheduled for tomorrow. Echocardiogram reveals an EF of 20-25%. Being considered for a life vest pending results of the cardiac catheterization. Review of Systems Constitutional: Denied any fatigue denied any fever. Cardio vascular: denied any chest pain, palpitations Gastrointestinal: denied any nausea, vomiting, diarrhea Pulmonary: Reports shortness of breath with activity. No cough Neurologic denied any new focal deficits All inpatient medications were reviewed and appropriate changes in these medications as dictated in the interval history and assessment and plan. PHYSICAL EXAMINATION: No GENERAL: The patient is alert and oriented x3, not in any acute distress. Well developed, well nourished. HEENT: Pupils are round and equally reacting to light. EOMI. No scleral icterus. No conjunctival pallor. Normocephalic, atraumatic. No pharyngeal erythema. No thyromegaly. CARDIOVASCULAR: S1 and S2 present. No murmurs, rubs, or gallops. PULMONARY: Chest is clear to auscultation, no wheezing or crackles. ABDOMEN: Soft, nontender, nondistended, normoactive bowel sounds. No palpable organomegaly. MUSCULOSKELETAL: No joint swelling or deformity. EXTREMITIES: No cyanosis, clubbing, or pedal edema. NEUROLOGICAL: Gross neurological examination did not reveal any focal deficits. SKIN: No rashes. Assessment -Elevated troponin rule out acute coronary syndrome -Severe cardiomyopathy with EF of 20-25% with moderate MR and biatrial dilation -Abdominal pain; etiology unclear; CT of the abdomen completed which revealed 3.6 cm well-circumscribed mass/density anterior to the left kidney but separate from the kidney with peripheral calcification; this could reflect circumscribed seroma; findings are felt to be a benign process. -Hyperbilirubinemia; elevated total bilirubin of 1.8; AST/ALT, alkaline phosphatase are all within normal limits -COPD; not in exacerbation -Chronic nicotine use Obesity GI prophylaxis DVT prophylaxis Full Code Plan Patient scheduled for cardiac catheterization on Tuesday Continue current cardiac medications; aldactone added today by cardiology Possible lifevest prior to discharge The impression and plan of care has been dictated by Deena Olivares, Nurse Practitioner as directed. Dr. Elmo MD I have performed a history and physical examination and medical decision making of this patient, discussed the same with the dictator, and agree with the dictators assessment and plan as written, documented as a scribe. Based on total visit time, I have performed more than 50% of this visit. Objective - Vital Signs Vital signs: Vital Signs Temp 98.2 F 03/28/23 11:20 Pulse 72 03/28/23 11:43 Resp 18 03/28/23 11:20 BP 129/63 03/28/23 11:20 Pulse Ox 100 03/28/23 11:20 FiO2 21 03/26/23 08:08 Intake & Output 03/27/23 03/28/23 03/28/23 18:59 06:59 18:59 Intake Total 680 Output Total 200 Balance 680 -200 Intake: Oral 680 Output: Urine 200 Other: Voiding Method Toilet Toilet # Voids 1 - Labs CBC & Chem 7: 03/26/23 07:54 03/27/23 07:22 Assessment and Plan Time with Patient: Less than 30
[2023-03-29] MEDS ORDERED: ATORVASTATIN 80 MG TAB PO ONE (05:00)
[2023-03-29] MEDS ORDERED: ASPIRIN 325 MG TAB PO ONE (05:00)
[2023-03-29 06:02] LABS: Glucose,Whole Blood 104 mg/dL (70-110)
[2023-03-29] MEDS ORDERED: HEPARIN SODIUM,PORCINE 10,000 UNIT in SODIUM CHLORIDE 0.9% 1,000 ML IRRIGATION PRN (07:00)
[2023-03-29] MEDS ORDERED: HEPARIN SODIUM,PORCINE (1 ML) 2,500 UNIT in SODIUM CHLORIDE 0.9% 250 ML IRRIGATION PRN (07:00)
[2023-03-29] MEDS ORDERED: VERAPAMIL 2.5 MG/ML 2 ML AMP ONE (07:18)
[2023-03-29] MEDS ORDERED: IV FLUID CONTINUATION 900 ML IV ONE (07:19)
[2023-03-29] MEDS ORDERED: HEPARIN SODIUM 1,000 UN/ML (10ML VL) ONE (07:28)
[2023-03-29] MEDS ORDERED: fentaNYL (PF) 50 MCG/ML 2 ML AMP ONE (07:28)
[2023-03-29] MEDS ORDERED: fentaNYL (PF) 50 MCG/ML 2 ML AMP IVP ONE (07:40)
[2023-03-29] MEDS: MIDAZOLAM 2 MG/2 ML VIAL IVP ONE ×2 (07:40→07:45)
[2023-03-29] MEDS ORDERED: LIDOCAINE 1% INJ 10MG/ML (20 ML MDV) SQ ONE (07:42)
[2023-03-29] MEDS ORDERED: VERAPAMIL SYRINGE (5 MG/10 ML) INTRAARTER ONE (07:47)
[2023-03-29] MEDS ORDERED: HEPARIN SODIUM 1,000 UN/ML (10ML VL) IVP ONE (07:51)
[2023-03-29] MEDS: PHENYLEPHRINE-0.9% NACL SYG 1,000 MCG/10 ML SYRINGE IVP ONE ×2 (08:10→08:37)
[2023-03-29] MEDS ORDERED: PHENYLEPHRINE-0.9% NACL SYG 1,000 MCG/10 ML SYRINGE IVP ONE ×2 (08:10)
[2023-03-29] MEDS: IPRATROPIUM 0.5 MG/2.5 ML NEBU INHALATION SCH ×5 (08:14→21:40)
[2023-03-29] MEDS: FORMOTEROL FUMARATE 20 MCG/2 ML NEBU INHALATION SCH ×2 (08:14→21:40)
[2023-03-29 08:16] LABS: African American GFR (CKD) >90 (>60 ml/min/1.73 sqM); Anion Gap 9 mmol/L; Blood Urea Nitrogen 18 mg/dL (9-20); Calcium 9.2 mg/dL (8.4-10.2); Carbon Dioxide 22 mmol/L (22-30); Chloride 107 mmol/L (98-107); Glucose 92 mg/dL (74-99); Non-African American GFR(CKD) 81 (>60 ml/min/1.73 sqM); Potassium 4.6 mmol/L (3.5-5.1); Sodium 138 mmol/L (137-145)
[2023-03-29] MEDS ORDERED: LIDOCAINE 1% INJ 10MG/ML (20 ML MDV) ONE (08:23)
[2023-03-29] MEDS ORDERED: RX INFO: IV CONTRAST WAS GIVEN 1 EACH MISC MISCELLANE PRN (09:03)
--- NOTE | 2023-03-29 09:03 | P.PN ---
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 Objective - Vital Signs Vital signs: Vital Signs Temp 98.0 F 03/29/23 05:00 Pulse 88 03/29/23 05:00 Resp 18 03/29/23 05:00 BP 96/62 03/29/23 05:00 Pulse Ox 98 03/29/23 05:00 FiO2 21 03/26/23 08:08 Intake & Output 03/28/23 03/29/23 03/29/23 18:59 06:59 18:59 Output Total 200 Balance -200 Output: Urine 200 Other: Voiding Method Toilet Toilet # Voids 1 - Labs CBC & Chem 7: 03/26/23 07:54 03/29/23 06:58
[2023-03-29 09:06] LABS: O2 Sat Blood Gas 93.3 %
[2023-03-29] MEDS ORDERED: IOPAMIDOL-370 125ML BTL INJ ONE ×2 (09:06)
[2023-03-29 09:08] LABS: O2 Sat Blood Gas 59.8 %
[2023-03-29 09:10] LABS: O2 Sat Blood Gas 60.5 %
[2023-03-29 09:12] LABS: O2 Sat Blood Gas 61.8 %
[2023-03-29 09:13] LABS: O2 Sat Blood Gas 60.9 %
[2023-03-29 09:15] LABS: O2 Sat Blood Gas 62.3 %
[2023-03-29] MEDS ORDERED: SODIUM CHLORIDE 0.9% 1,000 ML IV SCH (09:15)
[2023-03-29] MEDS: SACUBITRIL/VALSARTAN 24 MG-26 MG TABLET PO SCH ×2 (09:38→20:09)
[2023-03-29] MEDS: FUROSEMIDE 20 MG TAB PO SCH (09:38)
[2023-03-29] MEDS: METOPROLOL TARTRATE 25 MG TAB PO SCH ×2 (09:38→20:09)
[2023-03-29] MEDS: SPIRONOLACTONE 25 MG TAB PO SCH (09:38)
[2023-03-29] MEDS: NICOTINE 21MG/24HR PATCH TRANSDERM SCH (09:38)
[2023-03-29] MEDS ORDERED: HYDROcodone/APAP 5-325MG 1 EACH TAB PO PRN (10:04)
[2023-03-29] MEDS ORDERED: ACETAMINOPHEN TAB 325 MG TAB PO PRN (10:04)
[2023-03-29] MEDS: SODIUM CHLORIDE 0.9% 1,000 ML in EMPTY BAG 1 BAG IV SCH (10:35)
[2023-03-29] MEDS: HEPARIN SODIUM,PORCINE 5,000 UNIT/ML 1 ML VIAL SQ SCH ×2 (10:35→20:09)
--- NOTE | 2023-03-29 14:12 | P.PN ---
Progress Note - Text Patient will require LifeVest at the time of discharge to prevent sudden cardiac secondary to cardiomyopathy with ejection fraction of 20-25% and frequent PVCs
[2023-03-29 15:32] VITALS: RESP 16
[2023-03-29] MEDS: ATORVASTATIN 40 MG TAB PO SCH (20:08)
--- NOTE | 2023-03-29 23:19 | P.PN ---
Subjective Progress Note Date: 03/29/23 Patient is a 62 year old male comes in with complaints of exertional dyspnea. No prior cardiac stenting or [place]. Patient had troponin elevation and is pending cardiac catheterization which is scheduled for tomorrow. Echocardiogram reveals an EF of 20-25%. Being considered for a life vest pending results of the cardiac catheterization. 03/29/2023 Patient evaluated today resting in bed. 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 Patient may require CT consultation. Additionally life vest is recommended prior to discharge due to the cardiomyopathy and risk for sudden cardiac . Review of Systems Constitutional: Denied any fatigue denied any fever. Cardio vascular: denied any chest pain, palpitations Gastrointestinal: denied any nausea, vomiting, diarrhea Pulmonary: Reports shortness of breath with activity. No cough Neurologic denied any new focal deficits All inpatient medications were reviewed and appropriate changes in these medications as dictated in the interval history and assessment and plan. PHYSICAL EXAMINATION: No GENERAL: The patient is alert and oriented x3, not in any acute distress. Well developed, well nourished. HEENT: Pupils are round and equally reacting to light. EOMI. No scleral icterus. No conjunctival pallor. Normocephalic, atraumatic. No pharyngeal erythema. No thyromegaly. CARDIOVASCULAR: S1 and S2 present. No murmurs, rubs, or gallops. PULMONARY: Chest is clear to auscultation, no wheezing or crackles. ABDOMEN: Soft, nontender, nondistended, normoactive bowel sounds. No palpable organomegaly. MUSCULOSKELETAL: No joint swelling or deformity. EXTREMITIES: No cyanosis, clubbing, or pedal edema. NEUROLOGICAL: Gross neurological examination did not reveal any focal deficits. SKIN: No rashes. 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 -Severe cardiomyopathy with EF of 20-25% with moderate MR and biatrial dilation -Abdominal pain; etiology unclear; CT of the abdomen completed which revealed 3.6 cm well-circumscribed mass/density anterior to the left kidney but separate from the kidney with peripheral calcification; this could reflect circumscribed seroma; findings are felt to be a benign process. -Hyperbilirubinemia; elevated total bilirubin of 1.8; AST/ALT, alkaline phosphatase are all within normal limits -COPD; not in exacerbation -Chronic nicotine use Obesity GI prophylaxis DVT prophylaxis Full Code Plan Continue current cardiac medications Patient will require life vest on discharge due to the low EF and risk for sudden cardiac . Possible cardiothoracic consultation further recommendations by cardiology forthcoming. The impression and plan of care has been dictated by Deena Olivares, Nurse Practitioner as directed. Dr. Elmo MD I have performed a history and physical examination and medical decision making of this patient, discussed the same with the dictator, and agree with the dictators assessment and plan as written, documented as a scribe. Based on total visit time, I have performed more than 50% of this visit. Objective - Vital Signs Vital signs: Vital Signs Temp 97.9 F 03/29/23 20:48 Pulse 72 03/29/23 21:54 Resp 16 03/29/23 20:48 BP 106/77 03/29/23 20:48 Pulse Ox 100 03/29/23 20:48 FiO2 21 03/26/23 08:08 Intake & Output 03/29/23 03/29/23 03/30/23 06:59 18:59 06:59 Intake Total 800 Balance 800 Intake: IV 800 Other: Voiding Method Toilet Toilet # Voids 1 - Labs CBC & Chem 7: 03/26/23 07:54 03/29/23 06:58 Labs: Abnormal Lab Results - Last 24 Hours (Table) 03/29/23 Range/Units 06:58 Hemoglobin A1c 6.2 H (<=6.0) % Assessment and Plan Time with Patient: Less than 30
[2023-03-30 00:09] VITALS: TEMP 97.6
[2023-03-30] MEDS: FORMOTEROL FUMARATE 20 MCG/2 ML NEBU INHALATION SCH (07:57)
[2023-03-30] MEDS: IPRATROPIUM 0.5 MG/2.5 ML NEBU INHALATION SCH ×2 (07:57→11:27)
[2023-03-30] MEDS: SACUBITRIL/VALSARTAN 24 MG-26 MG TABLET PO SCH (08:47)
[2023-03-30] MEDS: NICOTINE 21MG/24HR PATCH TRANSDERM SCH (08:48)
[2023-03-30] MEDS: METOPROLOL TARTRATE 25 MG TAB PO SCH (08:48)
[2023-03-30] MEDS: SPIRONOLACTONE 25 MG TAB PO SCH (08:48)
[2023-03-30] MEDS: FUROSEMIDE 20 MG TAB PO SCH (08:48)
[2023-03-30] MEDS: HEPARIN SODIUM,PORCINE 5,000 UNIT/ML 1 ML VIAL SQ SCH (08:48)
[2023-03-30 08:56] LABS: Basophils % (A) 0 %; Eosinophils # (A) 0.2 k/uL (0-0.7); Eosinophils % (A) 2 %; HCT 46.6 % (39.0-53.0); HGB 15.1 gm/dL (13.0-17.5); Lymphocytes # (A) 3.5 k/uL (1.0-4.8); Lymphocytes % (A) 31 %; MCH 31.1 pg (25.0-35.0); MCHC 32.3 g/dL (31.0-37.0); MCV 96.3 fL (80.0-100.0); Mean Platelet Volume 8.7; Monocytes # (A) 0.6 k/uL (0-1.0); Monocytes % (A) 6 %; Neutrophils # (A) 6.7 k/uL (1.3-7.7); Neutrophils % (A) 60 %; Platelet Count 197 k/uL (150-450); RBC 4.84 m/uL (4.30-5.90); WBC 11.2 k/uL (3.8-10.6)
[2023-03-30] MEDS ORDERED: ASPIRIN 81 MG PO SCH (09:00)
[2023-03-30 09:07] LABS: African American GFR (CKD) >90 (>60 ml/min/1.73 sqM); Anion Gap 9 mmol/L; Blood Urea Nitrogen 14 mg/dL (9-20); Calcium 8.8 mg/dL (8.4-10.2); Carbon Dioxide 21 mmol/L (22-30); Chloride 107 mmol/L (98-107); Glucose 115 mg/dL (74-99); Non-African American GFR(CKD) >90 (>60 ml/min/1.73 sqM); Potassium 4.5 mmol/L (3.5-5.1); Sodium 137 mmol/L (137-145)
[2023-03-30] MEDS ORDERED: METOPROLOL SUCCINATE (ER) 50 MG TAB.ER.24H PO SCH (11:00)
[2023-03-30 12:24] VITALS: BP 106/66; PULSE 72
--- NOTE | 2023-03-30 14:05 | P.PN ---
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 Patient initially presented to the hospital with abdominal pain, poor appetite, nausea, and shortness of breath. Patient was found to have cardiomyopathy with an ejection fraction of 20-25%, [id number]-fr-wlzdecce MR, and trace TR. Patient is scheduled for cardiac catheterization tomorrow. Patient currently denies chest pain or pressure. He denies shortness of breath. Vital signs are stable. Patient is a current cigarette smoker and smokes 1 pack per day. He also reports 6-8 beers per week. 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 Medical management was recommended. Patient examined this morning at the bedside. Patient denies any chest pain or pressure. He denies shortness of breath. He has been up ambulating without difficulty. Vital signs are stable. PHYSICAL EXAM: VITAL SIGNS: Reviewed. GENERAL: Well-developed in no acute distress. NECK: Supple. No JVD or thyromegaly LUNGS: Respirations even and unlabored. Lungs essentially clear to auscultation bilaterally. HEART: Regular rate and rhythm. S1 and S2 heard. EXTREMITIES: Normal range of motion. No clubbing or cyanosis. Peripheral pulses intact. 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 Carranza Nurse practitioner note has been reviewed by physician. Signing provider agrees with the documented findings, assessment, and plan of care. Objective - Vital Signs Vital signs: Vital Signs Temp 97.6 F 03/30/23 07:38 Pulse 72 03/30/23 12:00 Resp 16 03/30/23 12:00 BP 106/66 03/30/23 12:00 Pulse Ox 98 03/30/23 12:00 FiO2 21 03/26/23 08:08 Intake & Output 03/29/23 03/30/23 03/30/23 18:59 06:59 18:59 Intake Total 800 240 Balance 800 240 Intake: IV 800 Oral 240 Other: Voiding Method Toilet Toilet - Labs CBC & Chem 7: 03/30/23 08:13 03/30/23 08:13 Labs: Abnormal Lab Results - Last 24 Hours (Table) 03/29/23 03/30/23 03/30/23 Range/Units 06:58 08:13 08:13 WBC 11.2 H (3.8-10.6) k/uL Carbon Dioxide 21 L (22-30) mmol/L Glucose 115 H (74-99) mg/dL Hemoglobin A1c 6.2 H (<=6.0) %
--- NOTE | 2023-03-30 15:08 | P.CARDCATH ---
Date of Procedure: 03/29/23 Description of Procedure: DIAGNOSTIC CORONARY ANGIOGRAPHY RIGHT HERAT CATH and LEFT HEART CATH REPORT PROCEDURES PERFORMED: Left heart catheterization Selective coronary angiography Moderate conscious sedation 73 mins Right radial access Ultrasound assisted right femoral vein access Right heart catheterization INDICATION: New cardiomyopathy CONSENT: I have discussed the risks, benefits and alternative therapies for the above-mentioned procedure, sedation/analgesia and necessary blood product administration (if indicated, as they pertain to this patient). The patient has indicated understanding and acceptance of the risks and procedures discussed. Conscious Sedation: Patient's ECG, heart rate, blood pressure, pulse oximetry was monitored throughout the duration of procedure under the direct supervision. 1 mg Versed and 50 mg Fentanyl were used for induction of moderate conscious sedation. Total duration of 73 minutes. PROCEDURE: After the risks, benefits and alternatives of the above mentioned procedure explained in detail with the patient, informed consent was obtained. Patient was taken to the catheterization lab and prepped and draped in usual sterile fashion. 1% lidocaine was infiltrated over the right radial artery. A 6-Lao sheath was placed in the right radial artery using modified Seldinger technique. The sheath was flushed 5 mg verapamil was administered intra- arterially. J tipped wire was advanced under fluoroscopic guidance. Once the wire tip reached aortic root [6000] units of IV heparin was given. Over the wire JL3.5 diagnostic catheter was advanced. Wire was removed, catheter was flushed and manipulated under fluoroscopy to selectively engaged the left coronary ostium. Left coronary angioplasty was performed in different angiographic projections. This catheter was exchanged for a JR4 diagnostic catheter over the wire. The catheter was flushed and manipulated to cross the aortic valve. LV pressures were obtained. Pullback was performed across aortic valve and catheter was manipulated to selectively engage the right coronary ostium under fluoroscopic guidance. Right coronary angiography was performed in different angiographic projections. Catheter was removed over the wire. Radial sheath was flushed. The right radial sheath was removed and a TR band was placed with excellent patent hemostasis was achieved. The patient tolerated the procedure well. Patient was transported back to the post catheterization holding area in stable condition. Angiographic images were reviewed in detail. After careful review of angiographic images it was noticed that there is a fistulous connection from left anterior descending artery to anterior aspect of the heart which is probably pulmonary artery. At that moment we decided to perform right heart catheterization. Right femoral vein access was obtained using ultrasound. 1% lidocaine was infiltrated over the femoral vein. Modified Seldinger technique was used. 6 Lao sheath was advanced and flushed. 6 Lao Wilson catheter was impress the sheath. Blood samples were collected from IVC, RA, RV,, and pulmonary artery, right and left pulmonary artery. Sequential pressures were obtained. Thermodilution and Gabriel study was performed The catheter was removed HEMODYNAMICS LV 83/10 mmHg LVEDP 23mmHg RA Mean 12 mmHg. Prominent A wave during PVCs RV 36/5 mmHg. RVEDP 12 mmHG PA 34/17 mmHg Mean PA pressure 23 mmHg PCW 22/19 mmHg. Mean PCW 16 mmHg Thermodilution CO 3.67 l/min Thermodilution CI 1.53 l/min/m2 FIO2 - 21% Arterial Sat - 98% IVC sat - 62% RA sat - 61% RV sat - 61% right PA sat - 59% Left PA sat - 61% GABRIEL CO 4.87 l/min SELECTIVE CORONARY ARTERIOGRAPHY: LEFT MAIN: The left main is a large caliber vessel which bifurcates into the LAD and circumflex. There is no significant stenosis. LEFT ANTERIOR DESCENDING CORONARY ARTERY: LAD is a large caliber vessel which wraps around to the apex. There is no significant stenosis. There appears to be an abnormal fistulous tract arrising from LAD and extending superiorly towards PA artery. There is aneurysmal dilation noticed in the fistulous tract. LEFT CIRCUMFLEX CORONARY ARTERY: It is nondominant vessel. Left circumflex is a moderate caliber vessel without significant stenosis. Tortuous. RIGHT CORONARY ARTERY: Dominant vessel. The right coronary artery is a large caliber vessel which gives off a PDA and PLV branch. It appears angiographically normal. 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 Performing Physician Albert Carranza MD
[2023-03-31] MEDS ORDERED: DAPAGLIFLOZIN PROPANEDIOL 10 MG TABLET PO SCH (09:00)
--- NOTE | 2023-04-02 13:53 | P.DS ---
Providers Date of admission: 03/28/23 07:21 Attending physician: Mandi Skinner Consults: 03/24/23 16:47 Consult Physician Urgent Consulting Provider: Quan Aviles Consult Reason/Comments: elevated troponin. Exertional dyspnea. 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 -Severe cardiomyopathy with EF of 20-25% with moderate MR and biatrial dilation -Abdominal pain; etiology unclear; CT of the abdomen completed which revealed 3.6 cm well-circumscribed mass/density anterior to the left kidney but separate from the kidney with peripheral calcification; this could reflect circumscribed seroma; findings are felt to be a benign process. -Hyperbilirubinemia; elevated total bilirubin of 1.8; AST/ALT, alkaline phosphatase are all within normal limits -COPD; not in exacerbation -Chronic nicotine use Obesity GI prophylaxis DVT prophylaxis Full Code Discharge Disposition Patient is stable for discharge home. Patient has been cleared by cardiology. Patient will be discharged home with lifevest due to the risk of sudden cardiac and severe cardiomyopathy. Patient recommended to have a repeat echocardiogram done in 3 months. Patient to see cardiology in 1 week post discharge. Recommend smoking cessation nicotine patch taper 21 mg daily for 7 days; 14 mg daily for 7 days, 7 mg daily for 7 days. Patient has been optimized on medical therapy. Hospital Course This is a 62-year-old male who presents emergency Department complaining of a week or 2 of abdominal pain. Patient states pain is more in the left side than the right. Patient also states she's been only able to eat a little bit once a day because of the nausea and pain. States hes lost about 25 lbs in the last month. He was mostly complaining of shortness of breath when ambulating. He has no nausea no vomiting and no diarrhea. he has been unable to work up like he used to . He is a current smoker about 1 pack per day. He has medical history of COPD. Prior history of coronary artery disease or heart failure or heart attack. No stroke history. Blood work completed in ED reveals a WBC of 8.8, hemoglobin of 15.7 and platelet count of 191, sodium 138, potassium 4.6, BUN/creatinine of 14/0.86 and blood glucose of 89. EKG shows a sinus rhythm with frequent PVCs at 70 bpm MI interval 265 QRSs 114 Q-T intervals 372 QTC is 45. Patient's EKG shows no ST segment elevation or depression. CT of the abdomen and pelvis is unremarkable except for 3.6 cm well- circumscribed mass/density anterior to the left kidney but separate from the kidney with peripheral calcification; this could reflect circumscribed seroma; findings are felt to be a benign process. Echocardiogram completed revealed severe LV dysfunction, dilated LV, left ventricular EF of 20-25%. Patient was admitted to the hospital with a consult placed to cardiology associates. 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 Patient was recommended for medical management. Educated on smoking cessation patient was started on Tarceva. Patient will require LifeVest at the time of discharge to prevent sudden cardiac secondary to cardiomyopathy with eje ction fraction of 20-25% and frequent PVCs. Currently reports that shortness of breath has improved no chest pain no nausea vomiting or diarrhea currently he is tolerating diet. He has been up ambulating. His lungs are clear S1-S2 auscultated no focal neurological deficits. Patient will be discharged home on optimized cardiac medications with the LifeVest in place. Please see medication reconciliation for list of current medications. Thank you for allowing us to participate in this patient. The impression and plan of care has been dictated by Nurse Dandy Pra ctitioner as directed. Dr. Elmo MD I have performed a history and physical examination and medical decision making of this patient, discussed the same with the dictator, and agree with the dictat ors assessment and plan as written, documented as a scribe. Based on total visit time, I have performed more than 50% of this visit. Patient Condition at Discharge: Fair Plan - Discharge Summary New Discharge Prescriptions: New Spironolactone [Aldactone] 25 mg PO DAILY #30 tab Sacubitril/Valsartan [Entresto 24 mg-26 mg Tablet] 1 each PO BID #30 tab Nicotine 21Mg/24Hr Patch [Habitrol] 1 patch TRANSDERM DAILY #5 patch Furosemide [Lasix] 20 mg PO DAILY #30 tab Atorvastatin [Lipitor] 40 mg PO HS #30 tab Metoprolol Succinate (ER) [Toprol XL] 50 mg PO DAILY #30 tab Aspirin 81 mg PO DAILY #30 tab Dapagliflozin Propanediol [Farxiga] 10 mg PO DAILY #30 tab Famotidine [Pepcid] 20 mg PO DAILY #30 tablet Continue Umeclidinium Brm/Vilanterol Tr [Anoro Ellipta 62.5-25 Mcg INH] 1 puff INHALATION RT-HS Discharge Medication List Umeclidinium Brm/Vilanterol Tr [Anoro Ellipta 62.5-25 Mcg INH] 1 puff INHALATION RT-HS 03/24/23 [History] Aspirin 81 mg PO DAILY #30 tab 03/30/23 [Rx] Atorvastatin [Lipitor] 40 mg PO HS #30 tab 03/30/23 [Rx] Dapagliflozin Propanediol [Farxiga] 10 mg PO DAILY #30 tab 03/30/23 [Rx] Famotidine [Pepcid] 20 mg PO DAILY #30 tablet 03/30/23 [Rx] Furosemide [Lasix] 20 mg PO DAILY #30 tab 03/30/23 [Rx] Metoprolol Succinate (ER) [Toprol XL] 50 mg PO DAILY #30 tab 03/30/23 [Rx] Nicotine 21Mg/24Hr Patch [Habitrol] 1 patch TRANSDERM DAILY #5 patch 03/30/23 [Rx] Sacubitril/Valsartan [Entresto 24 mg-26 mg Tablet] 1 each PO BID #30 tab 03/30/23 [Rx] Spironolactone [Aldactone] 25 mg PO DAILY #30 tab 03/30/23 [Rx] Follow up Appointment(s)/Referral(s): Albert Carranza MD [Medical Doctor] - 1 Week (Office staff will call you with an appointment date and time once records are received) Jone Bustos DO [Primary Care Provider] - 04/14/23 2:45 pm Ambulatory/Diagnostic Orders: Basic Metabolic Panel [LAB.AMB] Time Frame: 3 Days, Location: None Selected Complete Blood Count w/diff [LAB.AMB] Location: None Selected Patient Instructions/Handouts: *Surgery [facility] - After Heart Catheterization - Aircraft Charter Dispatcher Instructions, Heart Failure (DC), How to Stop Smoking (DC) Activity/Diet/Wound Care/Special Instructions: Continue to wear the life vest as recommended Follow up with cardiology outpatient in 1 week Recommend smoking cessation nicotine patch taper 21 mg daily for 7 days; 14 mg daily for 7 days, 7 mg daily for 7 days Discharge Disposition: HOME SELF-CARE
== END 2023-03-30 14:38 | disposition home or self-care (01) | DRG 286 ==
LOC: EC 10:32 → 3SCARD 16:49 → OBSVTOIN 03-28 07:21
PROVIDERS: ADMIT Hospitalist; ATTEND Hospitalist
PROC: 4A023N8 Measurement of Cardiac Sampling and Pressure, Bilateral, Percutaneous Approach (ICD-10-PCS; principal; 2023-03-29 07:30)
PROC: B2111ZZ Fluoroscopy of Multiple Coronary Arteries using Low Osmolar Contrast (ICD-10-PCS; 2023-03-29 07:30)
DX: I11.0 Hypertensive heart disease with heart failure (principal); I50.21 Acute systolic (congestive) heart failure; E66.9 Obesity, unspecified; I25.41 Coronary artery aneurysm; F17.210 Nicotine dependence, cigarettes, uncomplicated; I25.10 Atherosclerotic heart disease of native coronary artery without angina pectoris; I42.0 Dilated cardiomyopathy; E80.6 Other disorders of bilirubin metabolism; I45.9 Conduction disorder, unspecified; J44.9 Chronic obstructive pulmonary disease, unspecified; Z20.822 Contact with and (suspected) exposure to COVID-19; N28.89 Other specified disorders of kidney and ureter; Z79.899 Other long term (current) drug therapy; Z68.30 Body mass index [BMI] 30.0-30.9, adult
CPT/HCPCS: 36415; 71046; 74177; 76937; 80048; 80053; 80061; 80076; 81001; 82810; 83036; 83605; 84484; 85018; 85025; 85610; 85730; 87635; 93005; 93306; 93460; 94640; 94760; 96372; 99285

== ENCOUNTER 2023-04-28 12:43 | Emergency (ER) | payer OTHER ==
[2023-04-28] MEDS ORDERED: LIDOCAINE 1% INJ 10MG/ML (20 ML MDV) SQ ONE (13:10)
[2023-04-28] MEDS ORDERED: DIPH,PERTUS(ACELL)TETVAC-LF 0.5 ML VIAL IM ONE (13:13)
--- NOTE | 2023-04-28 13:56 | XR ---
EXAMINATION TYPE: XR finger RT DATE OF EXAM: 04/28/2023 COMPARISON: NONE HISTORY: Third digit laceration TECHNIQUE: Three views are submitted. FINDINGS: The osseous structures are intact. The joint spaces are preserved and there is no acute fracture or dislocation. There is a soft tissue laceration or partial amputation distal margin third digit. IMPRESSION: 1. No definite acute fracture or dislocation if symptoms persist, follow-up study in 7 to 10 days wo uld be suggested. 2. Soft tissue injury third digit.
--- NOTE | 2023-04-28 14:00 | ED ---
Wound/Laceration HPI - General Chief Complaint: Wound/Laceration Stated Complaint: Finger injury Time Seen by Provider: 04/28/23 13:01 Source: patient Mode of arrival: ambulatory Limitations: no limitations - History of Present Illness Initial Comments: Patient is a 62-year-old male presented ER with chief complaint of a right finger injury. Patient states he was at work when his finger caught in between 2 pieces of metal. Patient states he is still able to move his finger but it is painful. Tetanus vaccination is unknown. Patient denies any decrease in sensation are paresthesias. No other injuries. - Related Data Home Medications Medication Instructions Recorded Confirmed Umeclidinium Brm/Vilanterol Tr 1 puff INHALATION RT-HS 03/24/23 03/24/23 [Anoro Ellipta 62.5-25 Mcg INH] Previous Rx's Medication Instructions Recorded Aspirin 81 mg PO DAILY #30 tab 03/30/23 Atorvastatin [Lipitor] 40 mg PO HS #30 tab 03/30/23 Dapagliflozin Propanediol [Farxiga] 10 mg PO DAILY #30 tab 03/30/23 Famotidine [Pepcid] 20 mg PO DAILY #30 tablet 03/30/23 Furosemide [Lasix] 20 mg PO DAILY #30 tab 03/30/23 Metoprolol Succinate (ER) [Toprol 50 mg PO DAILY #30 tab 03/30/23 XL] Nicotine 21Mg/24Hr Patch [Habitrol] 1 patch TRANSDERM DAILY #5 patch 03/30/23 Sacubitril/Valsartan [Entresto 24 1 each PO BID #30 tab 03/30/23 mg-26 mg Tablet] Spironolactone [Aldactone] 25 mg PO DAILY #30 tab 03/30/23 Cephalexin [Keflex] 500 mg PO Q6HR #40 cap 04/28/23 Allergies Allergy/AdvReac Type Severity Reaction Status Date / Time No Known Allergies Allergy Verified 04/28/23 12:55 Review of Systems ROS Statement: Those systems with pertinent positive or pertinent negative responses have been documented in the HPI. ROS Other: All systems not noted in ROS Statement are negative. Past Medical History Past Medical History: COPD History of Any Multi-Drug Resistant Organisms: None Reported Past Surgical History: Orthopedic Surgery Additional Past Surgical History / Comment(s): sinus surgery Past Psychological History: No Psychological Hx Reported Smoking Status: Current every day smoker Past Alcohol Use History: Occasional Past Drug Use History: None Reported General Exam Limitations: no limitations General appearance: alert, in no apparent distress Respiratory exam: Present: normal lung sounds bilaterally. Absent: respiratory distress, wheezes, rales, rhonchi, stridor Cardiovascular Exam: Present: regular rate, normal rhythm, normal heart sounds. Absent: systolic murmur, diastolic murmur, rubs, gallop, clicks Extremities exam: Present: other (distal end of right third digit is missing. 2+ right radial pulse. good motion of DIP joint.) Neurological exam: Present: alert, oriented X3, CN II-XII intact Psychiatric exam: Present: normal affect, normal mood Course Vital Signs 04/28/23 04/28/23 12:52 14:55 Temperature 98.7 F 98.1 F Pulse Rate 68 62 Respiratory 17 16 Rate Blood Pressure 131/83 123/75 O2 Sat by Pulse 97 97 Oximetry Procedures - Nerve Block Consent Obtained: verbal consent Local Anesthetic Used: Lidocaine 1% Amount of anesthesia used: 5 Side: right Nerve Blocks: digital Procedure Successful: Yes Complications: none Patient Tolerated Procedure: well, no complications Medical Decision Making - Medical Decision Making Was pt. sent in by a medical professional or institution (, PA, INSTALLATION & MAINTENANCE EXECUTIVE, urgent care, hospital, or [facility]...) When possible be specific @ -No Did you speak to anyone other than the patient for history (EMS, parent, family, police, friend...)? What history was obtained from this source @ -No Did you review nursing and triage notes (agree or disagree)? Why? @ -I reviewed and agree with nursing and triage notes Were old charts reviewed (outside hosp., previous admission, EMS record, old EKG, old radiological studies, urgent care reports/EKG's, [facility] records)? Report findings @ -No old charts were reviewed Differential Diagnosis (chest pain, altered mental status, abdominal pain women, abdominal pain men, vaginal bleeding, weakness, fever, dyspnea, syncope, headache, dizziness, GI bleed, back pain, seizure, CVA, palpatations, mental health, musculoskeletal)? @ -Differential Musculoskeletal: Muscular strain, contusion, ligament sprain, fracture, arthritis, septic arthritis, bursitis, cellulitis, muscle spasm, nerve compression, DVT, arterial occlusion, herpes zoster, electrolyte abnormality, tumor.... This is not meant to be in all inclusive listble EKG interpreted by me (3pts min.). @ -None X-rays interpreted by me (1pt min.). @ -X-ray obtained of right third digit showed no acute fractures or dislocations. CT interpreted by me (1pt min.). @ -None done U/S interpreted by me (1pt. min.). @ -None done What testing was considered but not performed or refused? (CT, X-rays, U/S, labs)? Why? @ -None What meds were considered but not given or refused? Why? @ -None Did you discuss the management of the patient with other professionals (professionals i.e. , PA, INSTALLATION & MAINTENANCE EXECUTIVE, lab, RT, psych nurse, mental health social worker, dental laboratory technology teacher, teacher, postal sorting officer, hourly manager)? Give summary @ -No Was smoking cessation discussed for >3mins.? @ -No Was critical care preformed (if so, how long)? @ -No Were there social determinants of health that impacted care today? How? (Homelessness, low income, unemployed, alcoholism, drug addiction, transportation, low edu. Level, literacy, decrease access to med. care, longterm, rehab)? @ -No Was there de-escalation of care discussed even if they declined (Discuss DNR or withdrawal of care, Hospice)? DNR status @ -No What co-morbidities impacted this encounter? (DM, HTN, Smoking, COPD, CAD, Cancer, CVA, ARF, Chemo, Hep., AIDS, mental health diagnosis, sleep apnea, morbid obesity)? @ -None Was patient admitted / discharged? Hospital course, mention meds given and route, prescriptions, significant lab abnormalities, going to OR and other pertinent info. @ -Discharge. Upon examination patient was misting distal soft tissue of right third digit. Patient had full range of motion. Patient denied any paresthesias. Patient is not taking blood thinners. Patient received tetanus vaccination in the ER today x-ray of the right third digit showed no acute fractures or dislocations. Wound will be covered in bacitracin ointment and Vaseline gauze and wrapped with gauze. Patient will be prescribed Keflex. I advised patient to follow-up with orthopedics. I discussed with patient return parameters and proper care of wound. Patient expressed understanding and agreement with Plan. Patient discharged in stable condition with follow-up to PCP and orthopedics. Undiagnosed new problem with uncertain prognosis? @ -No Drug Therapy requiring intensive monitoring for toxicity (Heparin, Nitro, Insulin, Cardizem)? @ -No Were any procedures done? @ -Yes Diagnosis/symptom? @ -Right third digit soft tissue amputation Acute, or Chronic, or Acute on Chronic? @ -Acute Uncomplicated (without systemic symptoms) or Complicated (systemic symptoms)? @ -Uncomplicated Side effects of treatment? @ -No Exacerbation, Progression, or Severe Exacerbation? @ -No Poses a threat to life or bodily function? How? (Chest pain, USA, AR, pneumonia, PE, COPD, DKA, ARF, appy, cholecystitis, CVA, Diverticulitis, Homicidal, Suicidal, threat to staff... and all critical care pts) @ -No - Radiology Data Radiology results: report reviewed, image reviewed Disposition Clinical Impression: Laceration Disposition: HOME SELF-CARE Condition: Stable Additional Instructions: Please return to the Emergency Department if symptoms worsen or any other concerns. Prescriptions: Cephalexin [Keflex] 500 mg PO Q6HR #40 cap Is patient prescribed a controlled substance at d/c from ED?: No Referrals: Jone Bustos DO [Primary Care Provider] - 1-2 days Ryan Zuñiga MD [STAFF PHYSICIAN] - 1-2 days Time of Disposition: 14:50
[2023-04-28] MEDS ORDERED: BACITRACIN OINT 1 EACH PACKET TOPICAL ONE (14:43)
[2023-04-28 15:07] VITALS: BP 123/75; PULSE 62; RESP 16; TEMP 98.1
== END 2023-04-28 15:19 | disposition home or self-care (01) ==
LOC: EC 12:43
DX: S61.312A Laceration without foreign body of right middle finger with damage to nail, initial encounter (principal); J44.9 Chronic obstructive pulmonary disease, unspecified; F17.200 Nicotine dependence, unspecified, uncomplicated; Z23 Encounter for immunization; W23.0XXA Caught, crushed, jammed, or pinched between moving objects, initial encounter; Y99.0 Civilian activity done for income or pay
CPT/HCPCS: 73140; 90715; 99283; 90471; 64450; J2001

== ENCOUNTER → 2023-06-27 | Outpatient (CLI) | payer OTHER ==
[2023-06-27 14:41] LABS: ALT 38 U/L (4-49); AST 29 U/L (17-59); African American GFR (CKD) >90 (>60 ml/min/1.73 sqM); Albumin 4.6 g/dL (3.5-5.0); Albumin/Globulin Ratio 1.4; Alkaline Phosphatase 60 U/L (38-126); Anion Gap 7 mmol/L; Blood Urea Nitrogen 17 mg/dL (9-20); Calcium 9.9 mg/dL (8.4-10.2); Carbon Dioxide 28 mmol/L (22-30); Chloride 103 mmol/L (98-107); Creatine Kinase 175 U/L (55-170); Globulin 3.2 g/dL; Glucose 87 mg/dL (74-99); Magnesium 2.2 mg/dL (1.6-2.3); Non-African American GFR(CKD) >90 (>60 ml/min/1.73 sqM); Sodium 138 mmol/L (137-145); Total Bilirubin 1.4 mg/dL (0.2-1.3); Total Protein 7.8 g/dL (6.3-8.2)
[2023-06-27 14:44] LABS: NT-Pro-B-Type Natriuretic Pept 227 pg/mL
[2023-06-27 19:47] LABS: HCT 48.9 % (39.6-50.0); MCH 30.5 pg (27.0-32.0); MCHC 32.7 g/dL (32.0-37.0); MCV 93.1 FL (80.0-97.0); Mean Platelet Volume 9.7 FL (9.5-12.2); NRBC Per 100 WBC 0 X 10*3/uL (0.00-0.01); Platelet Count 292 X 10*3/uL (140-440); RBC 5.25 X 10*6/uL (4.40-5.60); RDW 13.9 % (11.5-14.5); WBC 10.78 X 10*3/uL (4.50-10.00)
== END | disposition home or self-care (01) ==
LOC: LABWHC1 13:16
PROVIDERS: ATTEND Student in an Organized Health Care Education/Training Program
DX: I50.9 Heart failure, unspecified (principal); I42.9 Cardiomyopathy, unspecified
CPT/HCPCS: 36415; 80053; 82550; 83735; 83880; 85027

== ENCOUNTER → 2023-11-01 | Outpatient (CLI) | payer OTHER ==
[2023-11-01 15:57] LABS: HCT 48.1 % (39.6-50.0); MCHC 33.3 g/dL (32.0-37.0); MCV 93.2 FL (80.0-97.0); Mean Platelet Volume 9.3 FL (9.5-12.2); NRBC Per 100 WBC 0 X 10*3/uL (0.00-0.01); Platelet Count 264 X 10*3/uL (140-440); RBC 5.16 X 10*6/uL (4.40-5.60); RDW 12.5 % (11.5-14.5); WBC 10.81 X 10*3/uL (4.50-10.00)
[2023-11-01 20:52] LABS: Blood Urea Nitrogen 13.5 mg/dL (9.0-27.0); Carbon Dioxide 25.7 mmol/L (21.6-31.8); Chloride 102 mmol/L (96-109); Potassium 4.9 mmol/L (3.5-5.5); Sodium 138 mmol/L (135-145)
== END | disposition home or self-care (01) ==
LOC: LABPAT 13:30
PROVIDERS: ATTEND Internal Medicine Clinical Cardiac Electrophysiology
DX: Z01.812 Encounter for preprocedural laboratory examination (principal); I50.9 Heart failure, unspecified; I42.8 Other cardiomyopathies
CPT/HCPCS: 36415; 80051; 82565; 84520; 85027

== ENCOUNTER 2023-11-15 12:55 | Day surgery (SDC) | payer OTHER ==
[2023-11-15] MEDS: IV FLUID CONTINUATION 1,000 ML IV ONE (13:32)
[2023-11-15] MEDS: SODIUM CHLORIDE 0.9% 1,000 ML IV SCH (13:32)
[2023-11-15] MEDS ORDERED: fentaNYL (PF) 50 MCG/ML 2 ML AMP ONE (15:50)
[2023-11-15] MEDS ORDERED: MIDAZOLAM 2 MG/2 ML VIAL ONE (15:50)
[2023-11-15] MEDS ORDERED: PROPOFOL 10 MG/ML 20 ML VIAL IV ONE (15:50)
[2023-11-15] MEDS: IOPAMIDOL-370 100ML BTL IVP ONE (16:06)
[2023-11-15] MEDS ORDERED: LIDOCAINE 1% INJ 10MG/ML (20 ML MDV) ONE ×3 (16:10→16:38)
[2023-11-15] MEDS: ceFAZolin 1 GM in SODIUM CHLORIDE 0.9% IRRIG BTL 250 ML IRRIGATION PRN (16:25)
[2023-11-15] MEDS: LIDOCAINE 1% INJ 10MG/ML (20 ML MDV) SQ ONE ×2 (16:30→16:40)
--- NOTE | 2023-11-15 17:38 | P.EPPROC ---
- EP Procedure Note Electrophysiology Procedure Note: Diagnosis Cardiomyopathy, chronic, nonischemic Bradycardia, on guideline directed Procedure: Dual-chamber ICD implantation for management of risk of sudden cardiac 4/bradycardia Result: Dual chamber ICD implantation, Medtronic Atrial lead: 52 cm Medtronic lead. R waves 5.5 mV, pace impedance 722 ohms, pacing threshold 0.5 V at 0.4 ms. 10 V test negative. Right atrial appendage implant RV ICD lead: 665 ohms, R waves 5 mV, pacing threshold 0.5 V at 0.4 ms, 10 V test negative. RV apical implant Procedure details: Patient was brought to the EP lab in a fasting state. Written informed consent was obtained prior to the procedure. Options, pros and cons, benefits and risks and complications discussed with patient in detail prior to the procedure (shared decision making). Importance of continuing medical treatment emphasized. Alternatives discussed. Patient would like to proceed with dual-chamber ICD implant. Left upper extremity venogram performed. 15 mL IV dye injected in the left arm. Patent axillary/subclavian vein The left pectoral area was prepped and draped as a protocol. IV antibiotics administered 1% lidocaine was used for local anesthesia. A 4 cm incision was made parallel to the deltopectoral groove, about 1.5 cm medial to it. The i ncision was carried down to the level of the pectoralis muscle and the subfascial pocket was made. Hemostasis was assured. The axillary vein access was obtained. Appropriately sized into to see sheaths were placed. ICD lead implanted in the right ventricle and screwed in. ICD lead tested for threshold, sensing, impedances and tested with high output pacing for diaphragmatic stimulation Atrial lead placed in the right atrial appendage and tested for threshold, sensing, impedance, and tested with high output pacing. Phrenic nerve stimulation Lead secured to the underlying transverse muscle after removing sheaths . Pocket irrigated with antibiotic solution Leads connected to the biventricular ICD generator. Wound closed in 3 layers and dressed per protocol Dual ICD interrogated and programmed. Appropriate pacing parameters, antitachycardia therapies with antitachycardia pacing cardioversion defibrillations programmed. Patient tolerated the procedure well without any acute complications. See scanned device report in EMR for lead details Defibrillation level testing Shocking review protocol used to induce ventricular fibrillation. Adequately and appropriately detected without any dropouts 10 J shock was unsuccessful 20 J shock was successful in defibrillating the patient Charge time 3.9 seconds 75 ms shocking impedance No post shock noise Programming VT zone 176 beats a minute, VF zone 211 beats a minute Appropriate antitachycardia pacing cardioversion defibrillation First cardioversion 20 J First defibrillation max output
[2023-11-15] MEDS: LACTATED RINGERS 1,000 ML IV SCH (19:46)
[2023-11-15] MEDS: ACETAMINOPHEN IV (For NPO) 1,000 MG in EMPTY BAG 1 BAG IVPB ONE (19:47)
[2023-11-15] MEDS: SACUBITRIL/VALSARTAN 97 MG-103 MG TABLET PO SCH (21:10)
[2023-11-15] MEDS: METOPROLOL SUCCINATE (ER) 50 MG TAB.ER.24H PO SCH (21:10)
[2023-11-16] MEDS: ACETAMINOPHEN TAB 325 MG TAB PO PRN (02:14)
[2023-11-16 07:48] VITALS: PULSE 63; RESP 16; TEMP 97.8
--- NOTE | 2023-11-16 08:15 | P.DS ---
Providers Attending physician: Sixto Sanchez Primary care physician: Lemuel Shattuck Hospital Course: Patient is doing well post dual ICD implantation No chest discomfort minimal discomfort at the ICD site No chest pain no undue shortness of breath no orthopnea PND On examination blood pressures 108/74 mmHg pulse rate 60 beats a minute afebrile Breath sounds are clear Heart sounds are normal no murmurs Impression Severe nonischemic cardiomyopathy with class II heart failure and a narrow QRS of less than 120 ms Chronotropic incompetence/sick sinus syndrome, symptomatic AV node Wenckebach block greater than 140 beats a minute even in a mildly sedated state, one-to-one conduction at 140 bpm atrial pacing Hemoglobin A1c 6.4, TSH normal, LDL 71 mg/dL, creatinine 1.2, potassium 4.9 Status post dual-chamber ICD yesterday 10 J failed to defibrillate the patient, successfully defibrillated with a 20 J shock Plan discharge home today after device interrogation Chest x-ray within normal limits leads in stable position Follow-up with Dr. Carranza in the device clinic in 1 week Maximize heart failure therapy as tolerated Adjust pacing rate responsiveness to optimize chronotropic competence as an outpatient over the next 3 months Avoid RV pacing, continue atrial based pacing [id number] Watch for RV pacing Plan - Discharge Summary Discharge Rx Participant: Yes New Discharge Prescriptions: No Action Spironolactone [Aldactone] 25 mg PO DAILY #30 tab Metoprolol Succinate (ER) [Toprol XL] 50 mg PO BID Cholecalciferol (Vitamin D3) [Vitamin D3 (1250 Mcg = 50,000 Iu)] 1,250 mcg PO WEEKLY Umeclidinium Brm/Vilanterol Tr [Anoro Ellipta 62.5-25 Mcg INH] 1 puff INHALATION RT-HS Aspirin 81 mg PO DAILY #30 tab Dapagliflozin Propanediol [Farxiga] 10 mg PO DAILY #30 tab Sacubitril/Valsartan [Entresto 97 mg-103 mg Tablet] 1 each PO BID Atorvastatin [Lipitor] 40 mg PO DAILY Discharge Medication List Umeclidinium Brm/Vilanterol Tr [Anoro Ellipta 62.5-25 Mcg INH] 1 puff INHALATION RT-HS 03/24/23 [History] Aspirin 81 mg PO DAILY #30 tab 03/30/23 [Rx] Dapagliflozin Propanediol [Farxiga] 10 mg PO DAILY #30 tab 03/30/23 [Rx] Spironolactone [Aldactone] 25 mg PO DAILY #30 tab 03/30/23 [Rx] Cholecalciferol (Vitamin D3) [Vitamin D3 (1250 Mcg = 50,000 Iu)] 1,250 mcg PO WEEKLY 11/11/23 [History] Metoprolol Succinate (ER) [Toprol XL] 50 mg PO BID 11/11/23 [History] Sacubitril/Valsartan [Entresto 97 mg-103 mg Tablet] 1 each PO BID 11/11/23 [History] Atorvastatin [Lipitor] 40 mg PO DAILY 11/15/23 [History] Follow up Appointment(s)/Referral(s): Sixto Sanchez MD [STAFF PHYSICIAN] - 11/24/23 2:30 pm (DEVICE CLINIC APPOINTMENT IS ON November AT 2:30 PM TUESDAY.)
--- NOTE | 2023-11-16 08:21 | XR ---
EXAMINATION TYPE: XR chest 2V DATE OF EXAM: 11/16/2023 6:36 AM CLINICAL INDICATION:Male, 63 years old with history of Lead placement check; [facility] COMPARISON: Chest radiographs from 03/24/2023 TECHNIQUE: XR chest 2V Frontal and lateral views of the chest. FINDINGS: Lungs/Pleura: There is flattening of the diaphragm with increased lucency of the lungs. No evidence o f pneumothorax, pleural effusion or focal consolidation. Pulmonary vascularity: Unremarkable. Heart/mediastinum: Cardiomediastinal silhouette is unremarkable. Two lead cardiac conduction device o verlying the left hemithorax with lead tips projecting over the right ventricle and right atrium. Musculoskeletal: No acute osseous pathology. IMPRESSION: 1. No acute cardiopulmonary disease process. 2. COPD changes.
[2023-11-16 10:05] VITALS: BP 115/72
[2023-11-16] MEDS: ASPIRIN 81 MG PO SCH (10:06)
[2023-11-16] MEDS: ATORVASTATIN 40 MG TAB PO SCH (10:06)
[2023-11-16] MEDS: SPIRONOLACTONE 25 MG TAB PO SCH (10:07)
[2023-11-16] MEDS: DAPAGLIFLOZIN PROPANEDIOL 10 MG TABLET PO SCH (10:07)
== END 2023-11-16 12:30 | disposition home or self-care (01) ==
LOC: CATHEP 12:55 → 6NMEDSUR 17:32 → CATHEP 11-16 12:30
PROVIDERS: ATTEND Internal Medicine Clinical Cardiac Electrophysiology
DX: I50.9 Heart failure, unspecified (principal); I42.8 Other cardiomyopathies; I49.5 Sick sinus syndrome; R00.1 Bradycardia, unspecified; I44.7 Left bundle-branch block, unspecified; J44.9 Chronic obstructive pulmonary disease, unspecified; E66.8 Other obesity; Z79.82 Long term (current) use of aspirin; Z79.899 Other long term (current) drug therapy; Z79.84 Long term (current) use of oral hypoglycemic drugs; Z87.891 Personal history of nicotine dependence
CPT/HCPCS: 93641; 33249; 71046; C1769 ×2; C1721; C1892 ×2; C1898; C1895; J0690; J2001; Q9967

== ENCOUNTER → 2024-05-22 | Outpatient (CLI) | payer OTHER ==
--- NOTE | 2024-05-22 13:00 | XR ---
EXAMINATION TYPE: XR chest 2V DATE OF EXAM: 05/22/2024 12:53 PM COMPARISON: Chest radiographs from 11/16/2023 CLINICAL INDICATION: Male, 63 years old with history of Cough; TECHNIQUE: XR chest 2V Frontal and lateral views of the chest. FINDINGS: Lungs/Pleura: There is flattening of the diaphragm with increased lucency of the lungs. No evidence o f pneumothorax, pleural effusion or focal consolidation. Pulmonary vascularity: Unremarkable. Heart/mediastinum: Cardiomediastinal silhouette is unremarkable. Two lead cardiac conduction device o verlying the left hemithorax with lead tips projecting over the right ventricle and right atrium. Musculoskeletal: No acute osseous pathology. IMPRESSION: 1. No acute cardiopulmonary disease process. 2. COPD changes. [facility], , 05/22/2024 12:58 PM
== END | disposition home or self-care (01) ==
LOC: RADXRMAIN 12:36
PROVIDERS: ATTEND Family Medicine
DX: J44.9 Chronic obstructive pulmonary disease, unspecified (principal)
CPT/HCPCS: 71046